=== PATIENT | male | born 1950 | race Caucasian/White ===

== ENCOUNTER 2018-10-05 11:56 | Observation (INO) ==
[2018-10-05] MEDS ORDERED: Aspirin 81 MG TAB.CHEW PO STA (12:00)
--- NOTE | 2018-10-05 12:12 | Emergency Department Note ---
Disposition Clinical Impression: Chest pain Qualifiers: Chest pain type: unspecified Qualified Code(s): R07.9 - Chest pain, unspecified Disposition: Admitted As Inpatient Condition: Good Forms: ED Satisfaction Letter Time of Disposition: 13:43 Chest Pain HPI - General Chief Complaint: ED Chest Pain Stated Complaint: cp Time Seen by Provider: 10/05/18 12:12 Source: patient, EMS Limitations: no limitations Vital Signs Reviewed: Yes Nursing Notes Reviewed: Yes - History of Present Illness HPI Narrative: I have re-performed and reviewed the history documented by the medical student, and I confirm its accuracy except as noted below Severity scale (1-10): 3 - Related Data Home Medications Medication Instructions Recorded Confirmed Citalopram [CeleXA] 20 mg PO DAILY 06/11/16 06/11/16 Dapagliflozin Propanediol [Farxiga] 5 mg PO DAILY 06/11/16 06/11/16 Insulin LISPRO [Humalog] 0 unit SQ AD MDD per pump 06/11/16 06/11/16 Lisinopril/Hydrochlorothiazide 1 tab PO DAILY 06/11/16 06/11/16 [Zestoretic 20-25 mg Tablet] Multivits,Ca,Min/Iron/FA/Lycop 1 tab PO DAILY 06/11/16 06/11/16 [Centrum Men's Tablet] Previous Rx's Medication Instructions Recorded Ferrous Sulfate 325 mg PO DAILY #30 tablet 06/13/16 Pantoprazole Sodium [Protonix] 40 mg PO BID #60 tablet. 06/13/16 Sucralfate [Carafate] 1 gm PO QIDAC #30 tablet 06/13/16 Sulfamethoxazole/Trimeth DS 1 each PO BID #20 tablet 09/01/17 [Bactrim DS] Tramadol HCl [Ultram] 50 mg PO TID PRN #15 tab 09/01/17 Allergies Allergy/AdvReac Type Severity Reaction Status Date / Time No Known Allergies Allergy Verified 09/01/17 15:16 All systems ED: reviewed and negative except as stated. Constitutional: Reports: other (Diaphoresis). Denies: fever Cardiovascular: Reports: chest pain Respiratory: Reports: dyspnea Gastrointestinal: Denies: abdominal pain, nausea, vomiting, diarrhea Genitourinary: Denies: urgency, dysuria Integumentary: Denies: rash Neurological: Denies: headache, weakness, numbness, paresthesias Chest Pain PMH - Past Medical History Medical history: Reports: diabetes, hyperlipidemia, hypertension, other Surgical history: Reports: no surgical history Psychiatric history: Reports: anxiety, depression - Social History Smoking Status: Former smoker Alcohol use: Reports: none Drug use: Reports: none Physical Exam - General Limitations: no limitations General appearance: alert Course Course Narrative: Patient vitals are stable at this time. Currently reports no active chest pain at this time. Physical exam fairly benign. Patient is in no acute distress, heart regular rate and rhythm, lungs clear to auscultation, abdomen soft and nontender. Legs show no edema, no calf tenderness. Distal pulses intact. Patient does have a concerning story for ACS etiology. Heart score that seeming troponin is negative would be a 6. Patient has no previous MN or stent history. EKG shows sinus rhythm with no acute ST changes. We will proceed with basic blood work, troponin, chest x-ray. Patient received aspirin 325 mg in route. Discussed that even if his workup is negative, patient will likely stay for ACS rule out. He is happy and agreeable with this plan. Patient was and has been ordered in case patient develops any additional chest discomfort. 13:41 chest x-ray negative. Troponin negative. Patient continues to have no pain at this time. No heparin drip or nitroglycerin drip started at this time. Patient was accepted for admission at this time for returning troponins and ACS rule out. Chest X-Ray 10/05/18 12:00 IMPRESSION: No acute process. D/ / Osiel Cagle MD / Osiel Cagle MD Interpreting Provider: Osiel Cagle MD Vital Signs Temperature 98.5 F 10/05/18 12:03 Pulse Rate 94 10/05/18 12:03 Respiratory Rate 18 10/05/18 12:03 Blood Pressure 139/78 10/05/18 12:03 O2 Sat by Pulse Oximetry 94 10/05/18 12:03 Temperature 98.5 F 10/05/18 12:03 Pulse Rate 94 10/05/18 12:59 Respiratory Rate 16 10/05/18 12:59 Blood Pressure 124/68 10/05/18 12:59 O2 Sat by Pulse Oximetry 96 10/05/18 12:59 Oxygen Delivery Oxygen Delivery Nasal Cannula Chest Pain - MDM Narrative Medical decision making narrative: Patient vitals are stable at this time. Currently reports no active chest pain at this time. Physical exam fairly benign. Patient is in no acute distress, heart regular rate and rhythm, lungs clear to auscultation, abdomen soft and nontender. Legs show no edema, no calf tenderness. Distal pulses intact. Patient does have a concerning story for ACS etiology. Heart score that seeming troponin is negative would be a 6. Patient has no previous MN or stent history. EKG shows sinus rhythm with no acute ST changes. We will proceed with basic blood work, troponin, chest x-ray. Patient received aspirin 325 mg in route. Discussed that even if his workup is negative, patient will likely stay for ACS rule out. He is happy and agreeable with this plan. Patient was and has been ordered in case patient develops any additional chest discomfort. 13:41 chest x-ray negative. Troponin negative. Patient continues to have no pain at this time. No heparin drip or nitroglycerin drip started at this time. Patient was accepted for admission at this time for returning troponins and ACS rule out. - Medical Records Medical records reviewed: Yes I reviewed the patient's medical records. - Lab Data Lab results reviewed: Yes I reviewed the patient's lab results. Result diagrams: 10/05/18 12:38 10/05/18 12:38 Lab Results 10/05/18 10/05/18 Range/Units 12:38 12:38 WBC 9.0 (4.3-11.1) K/mcL RBC 5.28 (4.19-5.50) M/mcL Hgb 15.5 (12.9-16.9) g/dL Hct 45.1 (37.5-50.1) % MCV 85.4 (83.0-100.0) fL MCH 29.4 (28.0-33.3) pg MCHC 34.4 (31.6-35.5) g/dL RDW 12.5 (11.5-14.5) % Plt Count 188 (140-400) K/mcL MPV 9.8 (9.4-12.4) fL Immature Gran % 0.7 (0-4) % Seg Neutrophils % 68.9 % Lymphocytes % 17.4 % Monocytes % 9.8 % Eosinophils % 2.5 % Basophils % 0.7 % Neutrophils # 6.2 (1.6-8.9) K/mcL Lymphocytes # 1.6 (0.6-4.6) K/mcL Monocytes # 0.9 (0.0-1.3) K/mcL Eosinophils # 0.2 (0.0-0.6) K/mcL Basophils # 0.1 (0.0-0.2) K/mcL Sodium 137 (136-145) mEq/L Potassium 4.1 (3.5-5.1) mEq/L Chloride 101 (98-107) mEq/L Carbon Dioxide 26 (23-29) mEq/L BUN 25 H (8-23) mg/dL Creatinine 0.91 (0.70-1.30) mg/dL Est GFR ( Amer) > 60 (> 60) Est GFR (Non-Af Amer) > 60 (> 60) BUN/Creatinine Ratio 27 H (6-26) Glucose 197 H (70-105) mg/dL Calculated Osmolality 294 (280-300) Calcium 10.0 (8.6-10.3) mg/dL Troponin I 0.03 (< 0.04) ng/mL - Radiology Data Radiology results reviewed: Yes I reviewed the patient's radiology results. Chest X-Ray 10/05/18 12:00 IMPRESSION: No acute process. D/ / Osiel Cagle MD / Osiel Cagle MD Interpreting Provider: Osiel Cagle MD - EKG Data EKG attestation: Yes I reviewed and interpreted this EKG. EKG results narrative: 10/05/2018 at 12:14. Sinus rhythm. Rate 94. AL 188. QRS 89. QTC 447. Left axis deviation. No acute ST elevation or depression. Heart Score - Score History: Moderately Suspicious EKG: Non Specific repolarisation Disturbance Age: Greater than 65 Risk Factors: Equal/Greater than 3 risk factor or history of atherosclerotic disease Troponin: Less than normal limit HEART Score Total: 6 S.B.A.R. - S.B.A.R. Situation: Demographics, MOA Background: Presenting Complaint, Relevant PMH, Meds, & Allergies Assessment: Vital Signs, Course and respsone to treatment, Exam Concerns, P atient/Family Expectation, Pertinant Lab Results Recommendation: Barrier(s) to disposition, Recommendation based on pending studies, treatments, or consults S.B.A.R. Report Given to: Dr. Bee
[2018-10-05] MEDS ORDERED: Nitroglycerin 0.4 MG TAB.SUBL SL PRN (12:18)
--- NOTE | 2018-10-05 12:27 | Emergency Department Note ---
Disposition Clinical Impression: Chest pain Qualifiers: Chest pain type: unspecified Qualified Code(s): R07.9 - Chest pain, unspecified Disposition: Admitted As Inpatient Condition: Good Chest Pain HPI - General Chief Complaint: ED Chest Pain Stated Complaint: chest pain Time Seen by Provider: 10/05/18 12:10 Source: patient, EMS Limitations: no limitations - History of Present Illness HPI Narrative: 68 YO M with a PMH significant for IDDM, HTN, dyslipidemia and peptic ulcer disease who presents to [facility] ED with approximately 1 hour of chest pain. History comes from the patient. Abilio states that he was cleaning his bedroom at [place] roximately 1115 this morning when he developed sudden onset of left sided chest pressure. He describes this feeling as radiating to his left arm, nonpositional and not reproducible with palpation. He developed sudden sweats with this chest pain and soaked the shirt he was wearing, but when he sat down on the couch he noted that his pain got better, though it did not entirely disappear. He then called EMS, who arrived, gave him 324 of aspirin and transported him to [place] ED for further evaluation and treatment. On arrival Abilio stated his pain was 2/10. He denies F/C, N/V/D, SOB, Vision changes, AMS, extremity swelling. He states his father suffered an MA, though he is unsure at what age. Pt complaint: chest pain Onset (ago): hour(s) Time: 15:00 Duration: other (Gradually improving) Pain Location: left chest Severity scale (1-10): 3 Quality: heaviness Pain Radiation: LUE Improves with: rest Worsens with: exertion Associated symptoms: Reports: diaphoresis. Denies: nausea, vomiting, dyspnea, syncope, palpitations, fever, leg swelling Treatments prior to arrival chest pain: aspirin - Related Data Home Medications Medication Instructions Recorded Confirmed RX: Citalopram [CeleXA] 20 mg PO DAILY 06/11/16 10/05/18 RX: Dapagliflozin Propanediol 5 mg PO DAILY 06/11/16 10/05/18 [Farxiga] RX: Lisinopril/Hydrochlorothiazide 1 tab PO BID 06/11/16 10/05/18 [Zestoretic 20-25 mg Tablet] RX: Multivits,Ca,Min/Iron/FA/Lycop 1 tab PO DAILY 06/11/16 10/05/18 [Centrum Men's Tablet] Insulin Regular U-500 [HumuLIN R 0 unit SQ AD 10/05/18 10/05/18 U-500] Potassium Chloride [K-Tab ER] 20 meq PO DAILY 10/05/18 10/05/18 Allergies Allergy/AdvReac Type Severity Reaction Status Date / Time No Known Allergies Allergy Verified 10/05/18 13:58 Constitutional: Denies: fever, chills Cardiovascular: Denies: chest pain, palpitations, edema, syncope Respiratory: Denies: cough, dyspnea, wheezes Gastrointestinal: Denies: abdominal pain, nausea, vomiting Genitourinary: Denies: urgency, dysuria, frequency Musculoskeletal: Denies: back pain, neck pain Neurological: Denies: headache, weakness Chest Pain PMH - Past Medical History Medical history: Reports: diabetes, hyperlipidemia, hypertension, other Surgical history: Reports: no surgical history Psychiatric history: Reports: anxiety, depression - Social History Smoking Status: Former smoker Alcohol use: Reports: none Drug use: Reports: none Physical Exam - General Limitations: no limitations General appearance: alert - Head Head exam: atraumatic, normocephalic, normal inspection - Eye Eye exam: Present: normal appearance, PERRL, EOMI - ENT ENT exam: normal exam, normal oropharynx, mucous membranes moist - Neck Neck exam: Present: normal inspection, full ROM, trachea midline - Chest Chest inspection: Present: normal inspection, symmetric chest wall rise. Absent: tenderness - Respiratory Respiratory exam: Present: normal lung sounds bilaterally. Absent: respiratory distress, wheezes, accessory muscle use - Cardiovascular Cardiovascular exam: Present: regular rate, normal rhythm, normal heart sounds. Absent: tachycardia, systolic murmur, rubs - Abdominal Exam Abdominal exam: Present: soft, Non-Tender, normal bowel sounds. Absent: tenderness, distention, guarding, rebound, rigidity - Extremities Exam Extremities exam: Present: normal inspection, full ROM, normal capillary refill. Absent: tenderness, pedal edema - Expanded Lower Extremity Exam Neurovascular/Tendon exam: Present: normal capillary refill. Absent: pulse deficit, motor deficit, sensory deficit - Neurological Exam Neurological exam: Present: alert, oriented X3, CN II-XII intact - Psychiatric Psychiatric exam: Present: normal affect, normal mood - Skin Skin exam: Present: warm, dry, intact Course Course Narrative: Abilio' history is highly concerning for a cardiac etiology. Assuming a normal troponin his heart score would still be a 7. He has had no stress test or echocardiogram in the past, and has been informed that regardless of laboratory results he will likely be admitted for observation, if not intervention. Abilio understands the plan of care and is amenable to the plan. - Reevaluation(s) Reevaluation #1: Initial troponin was WNL, however this was drawn early in the course of his c hest pain and could very well be a false negative. Repeat troponin evaluation is required, and the patient's worrisome history mandate inpatient observation regardless of laboratory result. This information was relayed to the patient and his family, who understood the plan of care and are amenable. On discussion with them it was made evident that his pain was improved with administration of nitroglycerin here in the ED. The hospitalist has been notified of Mr. Molina's condition. Vital Signs Temperature 98.5 F 10/05/18 12:03 Pulse Rate 94 10/05/18 12:03 Respiratory Rate 18 10/05/18 12:03 Blood Pressure 139/78 10/05/18 12:03 O2 Sat by Pulse Oximetry 94 10/05/18 12:03 Temperature 97.8 F 10/05/18 14:22 Pulse Rate 81 10/05/18 14:22 Respiratory Rate 16 10/05/18 14:22 Blood Pressure 126/79 10/05/18 14:22 O2 Sat by Pulse Oximetry 98 10/05/18 14:22 Oxygen Delivery Oxygen Delivery Room Air Chest Pain - Lab Data Result diagrams: 10/05/18 16:45 10/05/18 12:38 Lab Results 10/05/18 10/05/18 Range/Units 12:38 12:38 WBC 9.0 (4.3-11.1) K/mcL RBC 5.28 (4.19-5.50) M/mcL Hgb 15.5 (12.9-16.9) g/dL Hct 45.1 (37.5-50.1) % MCV 85.4 (83.0-100.0) fL MCH 29.4 (28.0-33.3) pg MCHC 34.4 (31.6-35.5) g/dL RDW 12.5 (11.5-14.5) % Plt Count 188 (140-400) K/mcL MPV 9.8 (9.4-12.4) fL Immature Gran % 0.7 (0-4) % Seg Neutrophils % 68.9 % Lymphocytes % 17.4 % Monocytes % 9.8 % Eosinophils % 2.5 % Basophils % 0.7 % Neutrophils # 6.2 (1.6-8.9) K/mcL Lymphocytes # 1.6 (0.6-4.6) K/mcL Monocytes # 0.9 (0.0-1.3) K/mcL Eosinophils # 0.2 (0.0-0.6) K/mcL Basophils # 0.1 (0.0-0.2) K/mcL Sodium 137 (136-145) mEq/L Potassium 4.1 (3.5-5.1) mEq/L Chloride 101 (98-107) mEq/L Carbon Dioxide 26 (23-29) mEq/L BUN 25 H (8-23) mg/dL Creatinine 0.91 (0.70-1.30) mg/dL Est GFR ( Amer) > 60 (> 60) Est GFR (Non-Af Amer) > 60 (> 60) BUN/Creatinine Ratio 27 H (6-26) Glucose 197 H (70-105) mg/dL Calculated Osmolality 294 (280-300) Calcium 10.0 (8.6-10.3) mg/dL Troponin I 0.03 (< 0.04) ng/mL - EKG Data EKG attestation: Yes I reviewed and interpreted this EKG. EKG shows normal: sinus rhythm Rate: normal Rhythm: NSR [place]/QRS: left axis deviation QRS morphology: J-point elevation (V2, V3) Interpretation: nonspecific ST-T wave changes Heart Score - Score History: Highly Suspicious EKG: Non Specific repolarisation Disturbance Age: Greater than 65 Risk Factors: Equal/Greater than 3 risk factor or history of atherosclerotic disease Troponin: Less than normal limit HEART Score Total: 7
[2018-10-05 13:14] LABS: Basophils # 0.1 K/mcL (0.0-0.2); Basophils % 0.7 %; Eosinophils # 0.2 K/mcL (0.0-0.6); Eosinophils % 2.5 %; Hematocrit 45.1 % (37.5-50.1); Hemoglobin 15.5 g/dL (12.9-16.9); Immature Granulocytes % 0.7 % (0-4); Lymphocytes # 1.6 K/mcL (0.6-4.6); Lymphocytes % 17.4 %; Mean Corpuscular HGB Conc 34.4 g/dL (31.6-35.5); Mean Corpuscular Hemoglobin 29.4 pg (28.0-33.3); Mean Corpuscular Volume 85.4 fL (83.0-100.0); Mean Platelet Volume 9.8 fL (9.4-12.4); Monocytes # 0.9 K/mcL (0.0-1.3); Monocytes % 9.8 %; Neutrophils # 6.2 K/mcL (1.6-8.9); Platelet Count 188 K/mcL (140-400); Red Blood Count 5.28 M/mcL (4.19-5.50); Red Cell Distribution Width 12.5 % (11.5-14.5); Segmented Neutrophils % 68.9 %; Troponin I 0.03 ng/mL (< 0.04)
[2018-10-05 13:17] LABS: BUN/Creatinine Ratio 27 (6-26); Blood Urea Nitrogen 25 mg/dL (8-23); Carbon Dioxide 26 mEq/L (23-29); Chloride 101 mEq/L (98-107); Glucose 197 mg/dL (70-105); Osmolality,Calculated 294 (280-300); Potassium 4.1 mEq/L (3.5-5.1); Sodium 137 mEq/L (136-145); eGFR For Non-African Americans > 60 (> 60)
--- NOTE | 2018-10-05 14:40 | Internal Med History&Physical ---
<Hellen Akhtar - Last Filed: 10/05/18 16:28> Date of Encounter: 10/05/18 Time of Encounter: 16:00 Internal Medicine - H&P: HPI History of present illness: Mr. Molina is a 68 year old male Past Med Surg Social Fam HX - Additional Family History Additional family history: Cardiac disease in his father. Internal Medicine - H&P: Meds Citalopram [CeleXA] 20 mg PO DAILY 06/11/16 [History] Dapagliflozin Propanediol [Farxiga] 5 mg PO DAILY 06/11/16 [History] Lisinopril/Hydrochlorothiazide [Zestoretic 20-25 mg Tablet] 1 tab PO BID 06/11/16 [History] Multivits,Ca,Min/Iron/FA/Lycop [Centrum Men's Tablet] 1 tab PO DAILY 06/11/16 [History] Insulin Regular U-500 [HumuLIN R U-500] 0 unit SQ AD 10/05/18 [History] Potassium Chloride [K-Tab ER] 20 meq PO DAILY 10/05/18 [History] Allergy/AdvReac Type Severity Reaction Status Date / Time No Known Allergies Allergy Verified 10/05/18 13:58 All Systems PM: A 10-system review of systems was performed and is negative for pertinent findings except as documented above in the HPI. - Constitutional Vitals: Temp Pulse Resp BP Pulse Ox 97.8 F 81 16 126/79 98 10/05/18 14:22 10/05/18 14:22 10/05/18 14:22 10/05/18 14:22 10/05/18 14:22 Internal Med - H&P Results - Labs CBC & Chem 7: 10/05/18 14:57 10/05/18 12:38 Labs: Short CBC 10/05/18 10/05/18 Range/Units 12:38 14:57 WBC 9.0 11.5 H (4.3-11.1) K/mcL Hgb 15.5 15.8 (12.9-16.9) g/dL Hct 45.1 46.2 (37.5-50.1) % Plt Count 188 199 (140-400) K/mcL Neutrophils # 6.2 8.0 (1.6-8.9) K/mcL BMP 10/05/18 12:38 Sodium 137 Potassium 4.1 Chloride 101 Carbon Dioxide 26 BUN 25 H Creatinine 0.91 Glucose 197 H Calcium 10.0 Cardiac Enzymes 10/05/18 10/05/18 Range/Units 12:38 14:57 Troponin I 0.03 0.07 H* (< 0.04) ng/mL - Impressions ITS Impressions Chest X-Ray 10/05/18 12:00 IMPRESSION: No acute process. D/ / Osiel Cagle MD / Osiel Cgale MD Interpreting Provider: Osiel Cagle MD - Assessment and plan (1) Hyperglycemia due to type 2 diabetes mellitus Current Visit: No Status: Acute (2) HTN (hypertension) Current Visit: No Status: Acute (3) Chest pain Current Visit: Yes Status: Acute Qualifiers: Chest pain type: unspecified Qualified Code(s): R07.9 - Chest pain, unsp ecified (4) Insulin dependent diabetes mellitus Current Visit: Yes Status: Acute (5) DVT prophylaxis Current Visit: Yes Status: Acute - Time Spent With Patient Total time spent is greater than 50% in coordination of care (as documented) at patient's floor/unit and/or counseling patient: - Attending Attestation I saw evaluated and examined this patient and my medical decision-making was reviewed with the Resident Physician, Aleksandr Gonzalez. I agree with the documented findings, disposition and treatment plan as described except to any changes set forth below. We independently had [id number] contact with the patient. Patient with history of diabetes, hypertension, hyperlipidemia who presented to the ER with complaints of chest pain that began at around 11:30 AM this morning. He reports that the pain as left-sided in location and radiating down his left arm. He called EMS and received nitroglycerin and aspirin when they arrived which did decrease his pain. He is presently chest pain-free. He is never had similar kind of chest pain before. No recent stress test. He denies any pedal edema or shortness of breath. No nausea or vomiting or diarrhea. General: Patient is alert, no acute distress, oriented x 3 Head: atraumatic, normocephalic, ENT: Mucous membranes moist Eye: normal appearance, PERRL, no scleral icterus, no conjunctival injection Neck: normal inspection, trachea midline, full ROM, no carotid bruits Chest: normal inspection, symmetric chest rise Respiratory: Good respiratory effort. Normal breath sounds. No wheezing or crackles. Cardiovascular: Regular rate and rhythm. s1 and s2 normal No clicks, rubs, gallops, or murmurs. No pedal edema Abdomen: Abdomen is soft, nontender. Bowel sounds are present Musculoskeletal: Spontaneously moving all extremities Skin: warm, dry, intact. Neuro: Alert oriented x 3 normal cranial nerves, no focal deficits Psych: Patient's affect is normal EKG shows normal sinus rhythm. Left axis deviation. Acute chest pain: Precordial chest pain. With mild elevation in troponins. We will consult cardiology. Follow the recommendations regarding treatment plan. For now continue to trend troponins. Keep patient nothing by mouth for either stress test or left heart catheterization tomorrow. Check lipid profile. High risk for ACS Diabetes mellitus type 2: Monitor blood sugars. Sliding scale insulin. Check A1c. Essential hypertension: Monitor blood pressure. Resume home medications. <Aleksandr Gonzalez - Last Filed: 10/05/18 17:14> Date of Encounter: 10/05/18 Time of Encounter: 14:39 Internal Medicine - H&P: HPI Chief complaint: Chest pain Admitted From: Home Plans for Post Hospital Care: Home History of present illness: Mr. Molina is a 68 year old male with pmhx of DM type II on insulin pump, HTN, HLD, sleep apnea not using CPAP, obesity presented to the emergency department with left sided substernal crushing chest pain raidiating to his left arm, exacerbated with activity and improved with rest and nitroglycerin he received in the emergency department. The chest pain started around 11am while he was exerting himself and did not improve until roughly 1:30 when he was brought to the ER by EMS. On the way he was given 324mg PO ASA and received nitro in the emergency department. With his chest pain he had dipahoresis and palpitations but no nausea or vomiting. He denies any other symptoms. He denies ever having similar symptoms like this in the past. An EKG was performed that demonstrated NSR with left axis and a mild one small box elevation in a single lead (V2). No other elevations or depressions. Initial lab work was without significants and initial troponin was negative. Mr. Molina says he was chest pain free during our discussion. Past Med Surg Social Fam HX - Past Medical History Medical history: diabetes, hyperlipidemia, hypertension, other Additional medical history: ULCER Psychiatric history: anxiety, depression - Past Surgical History Surgical History: no surgical history Additional surgical history: Carpal tunnel. Achilles Tendon. APPY. - Social History Smoking Status: Former smoker Smokeless Tobacco Status: No Alcohol use: none Drug use: none - Family History Father Hx Family Cardiac Disorders: Yes Mother Hx Family Endocrine Disorder: Yes (DM) All Systems PM: A 10-system review of systems was performed and is negative for pertinent findings except as documented above in the HPI. - Constitutional Constitutional: excessive sweating, no chills, no fatigue, no fever(s), no falls, no malaise, no night sweats, no weakness - EENT Eyes: no change in vision Nose, mouth and throat: no dental pain, no facial pain - Cardiovascular Cardiovascular ROS IM: chest pain, diaphoresis, dyspnea, dyspnea on exertion, palpitations, no edema, no irregular heart rhythm, no lightheadedness - Respiratory Respiratory: dyspnea, no cough - Gastrointestinal Gastrointestinal: no constipation, no diarrhea, no melena, no nausea, no vomiting - Constitutional Vitals: Temp Pulse Resp BP Pulse Ox 97.8 F 81 16 126/79 98 10/05/18 14:22 10/05/18 14:22 10/05/18 14:22 10/05/18 14:22 10/05/18 14:22 General appearance: Present: A&O X 3 Exam: Gen: Alert, oriented, interactive, no acute distress HEENT: NC/AT, PERRLA, speech appropriate, neck supple Cardiac: RRR, +S1,S2, no murmurs or gallops appreciated, radial pulses 2+ bilateral Resp: CTABL Abdomen: soft, nontender, +BS Extremities: symmetric, spontaneously moving all 4 limbs Internal Med - H&P Results - Labs CBC & Chem 7: 10/05/18 14:57 10/05/18 12:38 Labs: Short CBC 10/05/18 Range/Units 12:38 WBC 9.0 (4.3-11.1) K/mcL Hgb 15.5 (12.9-16.9) g/dL Hct 45.1 (37.5-50.1) % Plt Count 188 (140-400) K/mcL Neutrophils # 6.2 (1.6-8.9) K/mcL BMP 10/05/18 12:38 Sodium 137 Potassium 4.1 Chloride 101 Carbon Dioxide 26 BUN 25 H Creatinine 0.91 Glucose 197 H Calcium 10.0 Cardiac Enzymes 10/05/18 Range/Units 12:38 Troponin I 0.03 (< 0.04) ng/mL - Impressions ITS Impressions Chest X-Ray 10/05/18 12:00 IMPRESSION: No acute process. D/ / Osiel Cagle MD / Osiel Cagle MD Interpreting Provider: Osiel Cagle MD - Assessment and plan (1) Chest pain Current Visit: Yes Status: Acute Assessment and plan: Typical chest pain - EKG Normal sinus rhythm with left axis deviation - Troponin 0.03 now 0.07, one more pending - Elevated triglycerides - Cardiac monitoring - Start statin, ASA, Heparin Drip - Consult placed to cardiology and spoke with Dr. Peraza - Echocardiogram Qualifiers: Chest pain type: unspecified Qualified Code(s): R07.9 - Chest pain, unspecified (2) Insulin dependent diabetes mellitus Current Visit: Yes Status: Acute Assessment and plan: Continue patients insulin pump - ACHS glucose checks - HgbA1C (3) HTN (hypertension) Current Visit: No Status: Acute Assessment and plan: - continue to BP meds - Qshift monitoring Qualifiers: (4) DVT prophylaxis Current Visit: Yes Status: Acute Assessment and plan: Heparin Drip. - Time Spent With Patient Total time spent is greater than 50% in coordination of care (as documented) at patient's floor/unit and/or counseling patient:
[2018-10-05] MEDS ORDERED: Naloxone 0.4 MG/ML INJ IVP PRN (14:41)
[2018-10-05 15:21] LABS: Basophils # 0.1 K/mcL (0.0-0.2); Basophils % 0.5 %; Eosinophils # 0.3 K/mcL (0.0-0.6); Eosinophils % 2.2 %; Hematocrit 46.2 % (37.5-50.1); Hemoglobin 15.8 g/dL (12.9-16.9); Immature Granulocytes % 0.6 % (0-4); Lymphocytes # 2.1 K/mcL (0.6-4.6); Lymphocytes % 18.1 %; Mean Corpuscular HGB Conc 34.2 g/dL (31.6-35.5); Mean Corpuscular Hemoglobin 29.2 pg (28.0-33.3); Mean Corpuscular Volume 85.4 fL (83.0-100.0); Mean Platelet Volume 9.7 fL (9.4-12.4); Monocytes % 8.9 %; Platelet Count 199 K/mcL (140-400); Red Blood Count 5.41 M/mcL (4.19-5.50); Red Cell Distribution Width 12.6 % (11.5-14.5); Segmented Neutrophils % 69.7 %
--- NOTE | 2018-10-05 15:40 | Internal Med History&Physical ---
Date of Encounter: 10/05/18 Time of Encounter: 15:18 Internal Medicine - H&P: HPI Chief complaint: Chest pain Admitted From: Home Plans for Post Hospital Care: Home History of present illness: Mr. Molina is a 68 year old male with a past medical history significant for HTN, hyperlipidemia Past Med Surg Social Fam HX - Past Medical History Medical history: diabetes, hyperlipidemia, hypertension, other Additional medical history: ULCER Psychiatric history: anxiety, depression - Past Surgical History Surgical History: no surgical history Additional surgical history: Carpal tunnel. Achilles Tendon - Social History Smoking Status: Former smoker Smokeless Tobacco Status: No Alcohol use: none Drug use: none - Family History Father Hx Family Cardiac Disorders: Yes Mother Hx Family Endocrine Disorder: Yes (DM) Internal Medicine - H&P: Meds Citalopram [CeleXA] 20 mg PO DAILY 06/11/16 [History] Dapagliflozin Propanediol [Farxiga] 5 mg PO DAILY 06/11/16 [History] Lisinopril/Hydrochlorothiazide [Zestoretic 20-25 mg Tablet] 1 tab PO BID 06/11/16 [History] Multivits,Ca,Min/Iron/FA/Lycop [Centrum Men's Tablet] 1 tab PO DAILY 06/11/16 [History] Insulin Regular U-500 [HumuLIN R U-500] 0 unit SQ AD 10/05/18 [History] Potassium Chloride [K-Tab ER] 20 meq PO DAILY 10/05/18 [History] Allergy/AdvReac Type Severity Reaction Status Date / Time No Known Allergies Allergy Verified 10/05/18 13:58 All Systems PM: A 10-system review of systems was performed and is negative for pertinent findings except as documented above in the HPI. - Constitutional Vitals: Temp Pulse Resp BP Pulse Ox 97.8 F 81 16 126/79 98 10/05/18 14:22 10/05/18 14:22 10/05/18 14:22 10/05/18 14:22 10/05/18 14:22 Internal Med - H&P Results - Labs CBC & Chem 7: 10/05/18 14:57 10/05/18 12:38 Labs: Short CBC 10/05/18 Range/Units 12:38 WBC 9.0 (4.3-11.1) K/mcL Hgb 15.5 (12.9-16.9) g/dL Hct 45.1 (37.5-50.1) % Plt Count 188 (140-400) K/mcL Neutrophils # 6.2 (1.6-8.9) K/mcL BMP 10/05/18 12:38 Sodium 137 Potassium 4.1 Chloride 101 Carbon Dioxide 26 BUN 25 H Creatinine 0.91 Glucose 197 H Calcium 10.0 Cardiac Enzymes 10/05/18 Range/Units 12:38 Troponin I 0.03 (< 0.04) ng/mL - Impressions ITS Impressions Chest X-Ray 10/05/18 12:00 IMPRESSION: No acute process. D/ / Osiel Cagle MD / Osiel Cagle MD Interpreting Provider: Osiel Cagle MD - Time Spent With Patient Total time spent is greater than 50% in coordination of care (as documented) at patient's floor/unit and/or counseling patient:
[2018-10-05 15:42] LABS: Cholesterol 167 mg/dL (< 200); HDL Cholesterol 24 mg/dL (40-59); Triglycerides 692 mg/dL (< 150)
[2018-10-05] MEDS ORDERED: Heparin 25,000 UNIT/500 ML D5W 25,000 UNIT/500 ML BAG IVC SCH (16:30)
[2018-10-05] MEDS ORDERED: *HR* Heparin 5,000 UNIT/ML VIAL IVP PRN (16:30)
[2018-10-05] MEDS ORDERED: *HR* Heparin 5,000 UNIT/ML VIAL IVP ONE (16:30)
[2018-10-05] MEDS ORDERED: D5% in Water 1,000 ML IVC PRN (16:36)
[2018-10-05] MEDS ORDERED: *HR* Dextrose 50 % in Water (Syg) 50 ML SYRINGE IVP PRN (16:36)
[2018-10-05] MEDS ORDERED: Dextrose Gel 15 GM/37.5 ML TUBE PO PRN ×2 (16:36)
[2018-10-05] MEDS ORDERED: INSULIN REGULAR SQ SCH (16:45)
--- NOTE | 2018-10-05 16:58 | Emergency Department Note ---
Disposition Clinical Impression: Chest pain Qualifiers: Chest pain type: unspecified Qualified Code(s): R07.9 - Chest pain, unspecified Disposition: Admitted As Inpatient Condition: Good General Adult HPI - General Chief complaint: ED Chest Pain Stated complaint: cp Time Seen by Provider: 10/05/18 12:10 Source: patient, EMS Limitations: no limitations - History of Present Illness Pain Scale: 0 - Related Data Home Medications Medication Instructions Recorded Confirmed Citalopram [CeleXA] 20 mg PO DAILY 06/11/16 10/05/18 Dapagliflozin Propanediol [Farxiga] 5 mg PO DAILY 06/11/16 10/05/18 Lisinopril/Hydrochlorothiazide 1 tab PO BID 06/11/16 10/05/18 [Zestoretic 20-25 mg Tablet] Multivits,Ca,Min/Iron/FA/Lycop 1 tab PO DAILY 06/11/16 10/05/18 [Centrum Men's Tablet] Insulin Regular U-500 [HumuLIN R 0 unit SQ AD 10/05/18 10/05/18 U-500] Potassium Chloride [K-Tab ER] 20 meq PO DAILY 10/05/18 10/05/18 Allergies Allergy/AdvReac Type Severity Reaction Status Date / Time No Known Allergies Allergy Verified 10/05/18 13:58 Constitutional: Denies: fever, chills Cardiovascular: Denies: chest pain, palpitations, edema, syncope Respiratory: Denies: cough, dyspnea, wheezes Gastrointestinal: Denies: abdominal pain, nausea, vomiting Genitourinary: Denies: urgency, dysuria, frequency Musculoskeletal: Denies: back pain, neck pain Integumentary: Denies: rash Neurological: Denies: headache, weakness Past Medical History - Past Medical History Medical history: Reports: diabetes, hyperlipidemia, hypertension, other Surgical history: Reports: no surgical history Psychiatric history: Reports: anxiety, depression - Social History Smoking Status: Former smoker Smokeless Tobacco Status: No Alcohol use: Reports: none Drug use: Reports: none Physical Exam - General Limitations: no limitations General appearance: alert Course Vital Signs Temperature 98.5 F 10/05/18 12:03 Pulse Rate 94 10/05/18 12:03 Respiratory Rate 18 10/05/18 12:03 Blood Pressure 139/78 10/05/18 12:03 O2 Sat by Pulse Oximetry 94 10/05/18 12:03 Temperature 97.8 F 10/05/18 14:22 Pulse Rate 81 10/05/18 14:22 Respiratory Rate 16 10/05/18 14:22 Blood Pressure 126/79 10/05/18 14:22 O2 Sat by Pulse Oximetry 98 10/05/18 14:22 Oxygen Delivery Oxygen Delivery Room Air Medical Decision Making - Lab Data Result diagrams: 10/05/18 14:57 10/05/18 12:38 Lab Results 10/05/18 10/05/18 Range/Units 12:38 12:38 WBC 9.0 (4.3-11.1) K/mcL RBC 5.28 (4.19-5.50) M/mcL Hgb 15.5 (12.9-16.9) g/dL Hct 45.1 (37.5-50.1) % MCV 85.4 (83.0-100.0) fL MCH 29.4 (28.0-33.3) pg MCHC 34.4 (31.6-35.5) g/dL RDW 12.5 (11.5-14.5) % Plt Count 188 (140-400) K/mcL MPV 9.8 (9.4-12.4) fL Immature Gran % 0.7 (0-4) % Seg Neutrophils % 68.9 % Lymphocytes % 17.4 % Monocytes % 9.8 % Eosinophils % 2.5 % Basophils % 0.7 % Neutrophils # 6.2 (1.6-8.9) K/mcL Lymphocytes # 1.6 (0.6-4.6) K/mcL Monocytes # 0.9 (0.0-1.3) K/mcL Eosinophils # 0.2 (0.0-0.6) K/mcL Basophils # 0.1 (0.0-0.2) K/mcL Sodium 137 (136-145) mEq/L Potassium 4.1 (3.5-5.1) mEq/L Chloride 101 (98-107) mEq/L Carbon Dioxide 26 (23-29) mEq/L BUN 25 H (8-23) mg/dL Creatinine 0.91 (0.70-1.30) mg/dL Est GFR ( Amer) > 60 (> 60) Est GFR (Non-Af Amer) > 60 (> 60) BUN/Creatinine Ratio 27 H (6-26) Glucose 197 H (70-105) mg/dL Calculated Osmolality 294 (280-300) Calcium 10.0 (8.6-10.3) mg/dL Troponin I 0.03 (< 0.04) ng/mL Attestation Statement - Attestation Attestation: I examined this patient and my medical decision-making was reviewed with the Resident Physician. I agree with the documented findings, disposition and treatment plan as described except to the extent set forth below. High-risk HD normal CP pt, now pain-free after NTG, non-ischemic EKG and negative first troponin. Accepted for admission.
[2018-10-05 17:15] LABS: Hematocrit 46.1 % (37.5-50.1); Hemoglobin 15.8 g/dL (12.9-16.9); Mean Corpuscular HGB Conc 34.3 g/dL (31.6-35.5); Mean Corpuscular Hemoglobin 29.2 pg (28.0-33.3); Mean Corpuscular Volume 85.2 fL (83.0-100.0); Mean Platelet Volume 9.9 fL (9.4-12.4); Platelet Count 205 K/mcL (140-400); Red Blood Count 5.41 M/mcL (4.19-5.50); Red Cell Distribution Width 12.7 % (11.5-14.5)
[2018-10-05 17:23] LABS: Heparin anti-factor XA UFH 0.06 IU/mL (0.30-0.70); Prothrombin Time 11.5 Seconds (9.4-12.1)
[2018-10-05 17:41] LABS: Estimated Average Glucose 186 mg/dl; Hemoglobin A1C 8.1 %
[2018-10-05] MEDS: Patient Taking Own Medication 1 EACH SQ SCH (19:37)
[2018-10-06 00:39] LABS: Basophils # 0.1 K/mcL (0.0-0.2); Basophils % 0.9 %; Eosinophils # 0.4 K/mcL (0.0-0.6); Eosinophils % 4.2 %; Hemoglobin 15.3 g/dL (12.9-16.9); Immature Granulocytes % 0.5 % (0-4); Lymphocytes # 3.3 K/mcL (0.6-4.6); Lymphocytes % 35.6 %; Mean Corpuscular Hemoglobin 29.5 pg (28.0-33.3); Mean Corpuscular Volume 86.7 fL (83.0-100.0); Mean Platelet Volume 9.8 fL (9.4-12.4); Monocytes # 0.9 K/mcL (0.0-1.3); Monocytes % 9.3 %; Neutrophils # 4.6 K/mcL (1.6-8.9); Platelet Count 178 K/mcL (140-400); Red Blood Count 5.19 M/mcL (4.19-5.50); Red Cell Distribution Width 12.8 % (11.5-14.5); Segmented Neutrophils % 49.5 %
[2018-10-06] MEDS: *HR* Heparin 5,000 UNIT/ML VIAL IVP PRN ×2 (00:55→07:17)
[2018-10-06 03:45] LABS: Basophils # 0.1 K/mcL (0.0-0.2); Basophils % 0.8 %; Eosinophils # 0.4 K/mcL (0.0-0.6); Eosinophils % 4.6 %; Immature Granulocytes % 0.8 % (0-4); Immature Platelets 2.9 % (1.1-6.1); Lymphocytes # 3.2 K/mcL (0.6-4.6); Lymphocytes % 35.5 %; Mean Corpuscular HGB Conc 34.9 g/dL (31.6-35.5); Mean Corpuscular Hemoglobin 29.8 pg (28.0-33.3); Mean Corpuscular Volume 85.3 fL (83.0-100.0); Mean Platelet Volume 9.6 fL (9.4-12.4); Monocytes # 0.8 K/mcL (0.0-1.3); Monocytes % 8.9 %; Neutrophils # 4.4 K/mcL (1.6-8.9); Platelet Count 188 K/mcL (140-400); Red Blood Count 5.04 M/mcL (4.19-5.50); Red Cell Distribution Width 12.9 % (11.5-14.5); Segmented Neutrophils % 49.4 %
[2018-10-06 03:51] LABS: INR 1.1; Prothrombin Time 11.9 Seconds (9.4-12.1)
[2018-10-06 04:00] LABS: Alanine Aminotransferase 24 Units/L (7-52); Albumin 4.1 g/dL (3.5-5.7); Albumin/Globulin Ratio 1.4 (1.1-2.2); Alkaline Phosphatase 69 Units/L (34-104); Aspartate Amino Transferase 21 Units/L (13-39); BUN/Creatinine Ratio 22 (6-26); Bilirubin,Total 0.8 mg/dL (0.3-1.0); Blood Urea Nitrogen 19 mg/dL (8-23); Calcium 9.4 mg/dL (8.6-10.3); Carbon Dioxide 28 mEq/L (23-29); Chloride 100 mEq/L (98-107); Globulin 2.9 g/dL (2.4-3.5); Glucose 105 mg/dL (70-105); Magnesium 2.1 mg/dL (1.6-2.6); Osmolality,Calculated 287 (280-300); Potassium 3.6 mEq/L (3.5-5.1); Sodium 137 mEq/L (136-145); eGFR For Non-African Americans > 60 (> 60)
--- NOTE | 2018-10-06 08:12 | Internal Med Progress Note ---
<Aleksandr Gonzalez - Last Filed: 10/06/18 13:47> Hospitalist Progress Note - Encounter Date of Encounter: 10/06/18 Time of Encounter: 08:00 - Subjective Interval History: Mr. Molina is been seen and evaluated patient bedside this morning. He denies any chest pain overnight he slept well no concerns. Denies any diaphoresis, change in vision, chest discomfort, shortness of breath, palpitations, abdominal pain, nausea vomiting diarrhea constipation or any other concerning symptoms. He understands the plan he is awaiting further evaluation and cardiology's morning. Potential nuclear medicine stress test versus [facility] dependent on cardiology review. - Exam Vitals: Temp Pulse Resp BP Pulse Ox 97.6 F 67 16 139/80 97 10/06/18 03:52 10/06/18 03:52 10/06/18 03:52 10/06/18 03:52 10/06/18 03:52 Exam: Gen: Alert, oriented, interactive, no acute distress HEENT: NC/AT, PERRLA, speech appropriate, neck supple Cardiac: RRR, +S1,S2, no murmurs or gallops appreciated, radial pulses 2+ bilateral Resp: CTABL Abdomen: soft, nontender, +BS Extremities: symmetric, spontaneously moving all 4 limbs - Assessment and Plan (1) Chest pain Current Visit: Yes Status: Acute Assessment and Plan: Typical chest pain - EKG Normal sinus rhythm with left axis deviation (10/05) - Troponin trending down from high of 0.09 - Continue heparin drip, waiting further recommendations from cardiology today. (2) Insulin dependent diabetes mellitus Current Visit: Yes Status: Acute Assessment and Plan: Continue patients insulin pump - ACHS glucose checks - HgbA1C 8.1 - sliding scall initiate after patient ran out of insulin for his pump. (3) HTN (hypertension) Current Visit: No Status: Acute Assessment and Plan: - Continue lisinopril - Qshift monitoring (4) DVT prophylaxis Current Visit: Yes Status: Acute Assessment and Plan: Heparin Drip. - Time Spent with Patient Total time spent is greater than 50% in coordination of care (as documented) at patient's floor/unit and/or counseling patient: Internal Medicine: Result - Labs CBC & Chem 7: 10/06/18 11:49 10/06/18 02:58 Labs: Short CBC 10/05/18 10/05/18 10/05/18 Range/Units 12:38 14:57 16:45 WBC 9.0 11.5 H 11.2 H (4.3-11.1) K/mcL Hgb 15.5 15.8 15.8 (12.9-16.9) g/dL Hct 45.1 46.2 46.1 (37.5-50.1) % Plt Count 188 199 205 (140-400) K/mcL Neutrophils # 6.2 8.0 (1.6-8.9) K/mcL 10/06/18 10/06/18 Range/Units 00:13 02:58 WBC 9.3 8.9 (4.3-11.1) K/mcL Hgb 15.3 15.0 (12.9-16.9) g/dL Hct 45.0 43.0 (37.5-50.1) % Plt Count 178 188 (140-400) K/mcL Neutrophils # 4.6 4.4 (1.6-8.9) K/mcL BMP 10/05/18 10/06/18 12:38 02:58 Sodium 137 137 Potassium 4.1 3.6 Chloride 101 100 Carbon Dioxide 26 28 BUN 25 H 19 Creatinine 0.91 0.85 Glucose 197 H 105 Calcium 10.0 9.4 Cardiac Enzymes 10/05/18 10/05/18 10/05/18 Range/Units 12:38 14:57 20:52 Troponin I 0.03 0.07 H* 0.09 H* (< 0.04) ng/mL 10/06/18 Range/Units 02:58 Troponin I 0.07 H* (< 0.04) ng/mL Liver Function 10/06/18 Range/Units 02:58 Total Bilirubin 0.8 (0.3-1.0) mg/dL AST 21 (13-39) Units/L ALT 24 (7-52) Units/L Alkaline Phosphatase 69 (34-104) Units/L Albumin 4.1 (3.5-5.7) g/dL - ABG Interpretation ABG results: PT/INR, D-dimer PT 11.9 Seconds (9.4-12.1) 10/06/18 02:58 - Impressions Impressions Chest X-Ray 10/05/18 12:00 IMPRESSION: No acute process. D/ / Osiel Cagle MD / Osiel Cagle MD Interpreting Provider: Osiel Cagle MD Consult Discharge Plan - Plan Referrals: Omar Landis MD [Partnered Physician] - 10/14/18 9:30 am Chilo Sal MD [Primary Care Provider] - 03/29/19 2:00 pm () Osiel Melissa CNP [Advanced Practice Nurse] - 10/11/18 3:00 pm Sandra Mallory CNP [Advanced Practice Nurse] - 10/12/18 10:35 am <Hellen Akhtar - Last Filed: 10/06/18 16:50> Hospitalist Progress Note - Encounter Date of Encounter: 10/06/18 Time of Encounter: 08:10 - Exam Vitals: Temp Pulse Resp BP Pulse Ox 97.9 F 68 18 124/71 93 10/06/18 15:33 10/06/18 15:33 10/06/18 15:33 10/06/18 15:33 10/06/18 15:33 - Assessment and Plan (1) HTN (hypertension) Current Visit: No Status: Acute (2) Chest pain Current Visit: Yes Status: Acute (3) Insulin dependent diabetes mellitus Current Visit: Yes Status: Acute (4) DVT prophylaxis Current Visit: Yes Status: Acute - Time Spent with Patient Total time spent is greater than 50% in coordination of care (as documented) at patient's floor/unit and/or counseling patient: Internal Medicine: Result - Labs CBC & Chem 7: 10/06/18 11:49 10/06/18 02:58 Labs: Short CBC 10/05/18 10/06/18 10/06/18 Range/Units 16:45 00:13 02:58 WBC 11.2 H 9.3 8.9 (4.3-11.1) K/mcL Hgb 15.8 15.3 15.0 (12.9-16.9) g/dL Hct 46.1 45.0 43.0 (37.5-50.1) % Plt Count 205 178 188 (140-400) K/mcL Neutrophils # 4.6 4.4 (1.6-8.9) K/mcL 10/06/18 Range/Units 11:49 WBC 8.1 (4.3-11.1) K/mcL Hgb 15.1 (12.9-16.9) g/dL Hct 43.3 (37.5-50.1) % Plt Count 175 (140-400) K/mcL Neutrophils # (1.6-8.9) K/mcL BMP 10/06/18 02:58 Sodium 137 Potassium 3.6 Chloride 100 Carbon Dioxide 28 BUN 19 Creatinine 0.85 Glucose 105 Calcium 9.4 Cardiac Enzymes 10/05/18 10/06/18 Range/Units 20:52 02:58 Troponin I 0.09 H* 0.07 H* (< 0.04) ng/mL Liver Function 10/06/18 Range/Units 02:58 Total Bilirubin 0.8 (0.3-1.0) mg/dL AST 21 (13-39) Units/L ALT 24 (7-52) Units/L Alkaline Phosphatase 69 (34-104) Units/L Albumin 4.1 (3.5-5.7) g/dL - ABG Interpretation ABG results: PT/INR, D-dimer PT 11.4 Seconds (9.4-12.1) 10/06/18 11:49 - Impressions Impressions Echocardiogram 10/06/18 08:42 Impressions: LVEF 60%. Normal LV chamber size and function. Mild concentric left ventricular hypertrophy. Mild left ventricular diastolic dysfunction. Normal right ventricular structure and function. Unable to estimate RVSP due to lack of TR jet. No significant valvular dysfunction. Left Ventricular Wall Motion: Rest Echo Findings All wall segments showed normal motion. Findings: Study Quality * Technically adequate exam. ECG Findings * Normal sinus rhythm. Left Ventricle * LVEF 60%. * Normal LV chamber size and function. * Mild concentric left ventricular hypertrophy. * Mild left ventricular diastolic dysfunction. Right Ventricle * Normal right ventricular structure and function. Left Atrium * Normal left atrial size. Right Atrium * Normal right atrial size. Aortic Valve * Trileaflet aortic valve with normal function. * No aortic regurgitation. * No aortic stenosis. Mitral Valve * Normal mitral valve structure and function. * No mitral stenosis. * No mitral regurgitation. Tricuspid Valve * Normal tricuspid valve structure and function. * No tricuspid regurgitation. * Unable to estimate RVSP due to lack of TR jet. Pulmonic Valve * Normal pulmonic valve structure and function. * Trace pulmonic regurgitation. Aorta * Normally sized aortic root. Pericardium * The pericardium appears normal. IVC * Normal IVC dimensions and inspiratory collapse. Pulmonary Artery * Normal visualized portions of the main pulmonary artery. - Attending Attestation I saw evaluated and examined this patient and my medical decision-making was reviewed with the Resident Physician, Aleksandr Gonzalez. I agree with the documented findings, disposition and treatment plan as described except to any changes set forth below. We independently had [id number] contact with the patient. Patient no longer has been having any chest pain. Has been nothing by mouth overnight pending cardiac evaluation. On IV heparin. Denies any hematemesis, hematochezia or hematuria. No longer having any chest pain. No shortness of breath. On exam, patient is awake and alert. Cooperative. Breath sounds are normal. S1 and S2 normal. No murmur. Abdomen is soft, nontender. Normal strength in all extremities. No pedal edema. Acute chest pain: With concern for ACS. On IV heparin per cardiology recommend ations. Patient underwent 2-D echocardiogram today which showed normal ejection fraction of 60%. Left heart catheterization performed today. Severe 2 vessel coronary artery disease identified. Drug-eluting stent placed in mid RCA. Patient also has 70% stenosis in the first marginal branch of circumflex. Patient on aspirin, statin and Brilinta. Diabetes mellitus type 2: A1c 8.1%. Continue sliding scale insulin. Continue to monitor blood sugars. Essential hypertension: Blood pressure elevated earlier this morning but has since improved. Continue lisinopril and metoprolol. Hyperlipidemia: Continue statin. Moderate risk for complications. <Aleksandr Gonzalez - Last Filed: 10/06/18 13:47> (1) Chest pain Qualifiers: Chest pain type: unspecified Qualified Code(s): R07.9 - Chest pain, unspecified <Hellen Akhtar - Last Filed: 10/06/18 16:50> (1) HTN (hypertension) Qualifiers: (2) Chest pain Qualifiers: Chest pain type: unspecified Qualified Code(s): R07.9 - Chest pain, unspecified
--- NOTE | 2018-10-06 08:39 | Cardiology Consult Note ---
Addendum entered and electronically signed by Madan Peraza MD 10/06/18 14:31: I examined this patient and my medical decision-making was reviewed with the [employer]. I agree with the documented findings, disposition and treatment plan as described except to the extent set forth below. A/P: Probable NSTEMI DM Obesity A/R/B of [facility] vs. med tx dw with him, he is aware and agreeable with proceeding. Thank you for the consult, Madan Peraza MD [facility] Original Note: Date of Encounter: 10/06/18 Time of Encounter: 08:40 Assessment and Plan (1) Elevated troponin I measurement Current Visit: Yes Status: Acute Per Cardiology: Troponin initially negative and then 0.07, 0.09, and 0.07-- suspect non-STEMI. Patient denies any past history of CAD. Risk factors include male, obesity, DM 2, HTN, HLD. Will cancel stress test. Recommend left heart catheterization and echocardiogram. Will discuss with Dr. Peraza. On aspirin, statin, JENNIFER inhibitor, and heparin drip. Will add beta angy-- systolic blood pressure in the 150s. We will initiate cardiac rehabilitation consult. Patient verbalized understanding and agreed with plan. All questions answered. Discussion w patient/family: The assessment and plan as outlined above was discussed with the patient and/or family members who expressed understanding and agreement. All questions were answered. Thank you for involving us in the care of your patient. Please call with any questions. History of Present Illness Consult date: 10/06/18 Requesting physician: Aleksandr Gonzalez Consult reason: Elevated Troponin Chief complaint: CP History of present illness: Mr. Molina is a 68 year old male with a relevant past medical history of DM 2, HTN, HLD, obesity. Reports possible family history of CAD with father, however estranged. Denies any past history of NM or cardiac concerns. Cardiology consult for chest pain and elevated troponins. Patient reports fairly active at home with no difficulty. Denies any concerns or complaints prior to precipitating event. He reports he was doing some light housework and cleaning a room and developed midsternal left-sided chest pressure/heaviness with radiation down his left mid axillary region. He did report some mild shortness of breath. Reports symptoms improved with rest and lasted a total of about one hour. Denied any dizziness, syncope, falls. Denies any recent infectious process. Denies any active bleeding or blood loss. Denies any fatigue or dyspnea on exertion. Past Med Surg Social Fam HX - Past Medical History Attestation: Yes The following information was validated with the patient. Source: patient, old records reviewed Medical history: diabetes, hyperlipidemia, hypertension, other Additional medical history: ULCER Psychiatric history: anxiety, depression - Past Surgical History Surgical History: no surgical history Additional surgical history: Carpal tunnel. Achilles Tendon. APPY. - Social History Smoking Status: Former smoker Smokeless Tobacco Status: No Alcohol use: none Drug use: none - Family History Father Hx Family Cardiac Disorders: Yes Mother Hx Family Endocrine Disorder: Yes (DM) Medications and Allergies Citalopram [CeleXA] 20 mg PO DAILY 06/11/16 [History] Dapagliflozin Propanediol [Farxiga] 5 mg PO DAILY 06/11/16 [History] Lisinopril/Hydrochlorothiazide [Zestoretic 20-25 mg Tablet] 1 tab PO BID 06/11/16 [History] Multivits,Ca,Min/Iron/FA/Lycop [Centrum Men's Tablet] 1 tab PO DAILY 06/11/16 [ History] Insulin Regular U-500 [HumuLIN R U-500] 0 unit SQ AD 10/05/18 [History] Potassium Chloride [K-Tab ER] 20 meq PO DAILY 10/05/18 [History] Allergy/AdvReac Type Severity Reaction Status Date / Time No Known Allergies Allergy Verified 10/05/18 13:58 All Systems Review: The remainder of the systems were reviewed and are negative - Cardiovascular Cardiovascular: as per HPI, chest pain with exertion Physical Examination Vital Signs, Last 4 Hours Temp Pulse Resp BP Pulse Ox 10/06/18 08:11 97.6 F 72 18 150/89 97 General: Conversant, No Apparent Distress HEENT: Atraumatic, Normocephaly, Mucus Membranes Moist Neck: No JVD, Normal carotid pulses Cardiac: Reg Rate and Rhythm, Normal S1 and S2, No Murmur Lungs: Normal Breath Sounds, No Wheeze, Rales, Rhonchi Neuro: Alert and responsive, No focal deficits noted Abdomen: Soft, Non-Tender, Other (Obese) Skin: No rashes noted on visualized skin Musculoskeletal: No Chest Wall Tenderness Extremities: No Clubbing, No Cyanosis, No Edema, Normal Pulses Results 10/06/18 02:58 10/06/18 02:58 Lab Results Laboratory Tests 10/05/18 10/05/18 10/05/18 12:38 14:57 20:52 Hgb Hct INR Magnesium AST ALT Troponin I 0.03 0.07 H* 0.09 H* 10/06/18 10/06/18 10/06/18 00:13 02:58 02:58 Hgb 15.3 Hct 45.0 INR 1.1 Magnesium AST ALT Troponin I 0.07 H* 10/06/18 02:58 Hgb Hct INR Magnesium 2.1 AST 21 ALT 24 Troponin I ITS Impressions Chest X-Ray 10/05/18 12:00 IMPRESSION: No acute process. D/ / Osiel Cagle MD / Osiel Cagle MD Interpreting Provider: Osiel Cagle MD Active Medications Aspirin (Aspirin) 81 mg PO DAILY [facility] Stop: 04/07/19 09:01 Atorvastatin Calcium (Lipitor) 80 mg PO HS DB Stop: 04/06/19 21:01 Last Admin: 10/05/18 20:36 Dose: 80 mg Citalopram Hydrobromide (Celexa) 20 mg PO DAILY [facility] Stop: 04/07/19 09:01 Dextrose/Water (Dextrose 50% (Syg)) 25 ml IVP AD PRN PRN Reason: Hypoglycemia Stop: 04/06/19 16:37 Glucagon (Glucagen) 1 mg IM ONCE PRN PRN Reason: Hypoglycemia Stop: 04/06/19 16:37 Glucose (Gluctose) 15 gm PO ONCE PRN PRN Reason: Hypoglycemia Stop: 04/06/19 16:37 Glucose (Gluctose) 30 gm PO ONCE PRN PRN Reason: Hypoglycemia Stop: 04/06/19 16:37 Dextrose (Dextrose 5%) 1,000 mls @ 100 mls/hr IVC .Q10H PRN PRN Reason: HYPOGLYCEMIA Stop: 04/06/19 16:37 Lisinopril (Zestril) 20 mg PO DAILY [facility]; Protocol Stop: 04/07/19 09:01 Multivitamins/Calcium (Thera M Plus) 1 tab PO DAILY DB Stop: 04/07/19 09:01 Naloxone HCl (Narcan) 0.4 mg IVP Q2MIN PRN PRN Reason: SEE COMMENTS Stop: 04/06/19 14:42 Nitroglycerin (Nitroglycerin) 0.4 mg SL Q5MIN PRN PRN Reason: Chest Pain Stop: 04/06/19 12:19 Last Admin: 10/05/18 12:58 Dose: 0.4 mg Pharmacy Profile Note (Patient Taking Own Medication) 0 each PO DAILY [facility] Stop: 04/07/19 09:01 Pharmacy Profile Note (Patient Taking Own Medication) 0 each SQ AD DB Stop: 04/06/19 19:31 Last Admin: 10/05/18 19:37 Dose: Not Given - Imaging and Cardiology Stress Test: pending Echo: pending - EKG Interpretation EKG results cardiology: personally reviewed (Sinus rhythm the 80s with occasional PACs), normal ECG, sinus rhythm, no diagnostic ischemia Consult Discharge Plan - Plan Referrals: Chilo Sal MD [Primary Care Provider] - (Your appointment has been requested. Our offices will contact with an appointment time and date. )
[2018-10-06] MEDS: Aspirin 81 MG TAB.CHEW PO SCH (11:29)
[2018-10-06] MEDS: (Dapagliflozin Propanediol [Farxiga] 5 MG) PO SCH (11:29)
[2018-10-06] MEDS: Multivit/Ca/Min/Fe/FA 1 TAB TABLET PO SCH (11:29)
[2018-10-06] MEDS: Lisinopril 20 MG TABLET PO SCH (11:29)
[2018-10-06] MEDS ORDERED: *HR* Heparin 5,000 UNIT/ML VIAL IVP PRN ×2 (11:33)
[2018-10-06] MEDS ORDERED: Heparin 25,000 UNIT/500 ML D5W 25,000 UNIT/500 ML BAG IVC SCH (11:45)
[2018-10-06 12:10] LABS: Hematocrit 43.3 % (37.5-50.1); Hemoglobin 15.1 g/dL (12.9-16.9); Mean Corpuscular HGB Conc 34.9 g/dL (31.6-35.5); Mean Corpuscular Hemoglobin 29.7 pg (28.0-33.3); Mean Corpuscular Volume 85.2 fL (83.0-100.0); Mean Platelet Volume 9.4 fL (9.4-12.4); Platelet Count 175 K/mcL (140-400); Red Blood Count 5.08 M/mcL (4.19-5.50); Red Cell Distribution Width 12.9 % (11.5-14.5)
[2018-10-06 12:20] LABS: Heparin anti-factor XA UFH 0.36 IU/mL (0.30-0.70)
[2018-10-06 12:21] LABS: Prothrombin Time 11.4 Seconds (9.4-12.1)
[2018-10-06] MEDS ORDERED: ISOVUE-370 200 ML INFUS..BTL ONE (13:30)
[2018-10-06] MEDS ORDERED: 0.9 % Sodium Chloride 1,000 ML ONE ×2 (13:30→13:31)
[2018-10-06] MEDS ORDERED: *HR* Heparin 10,000 UNIT/10 ML VIAL ONE (13:30)
[2018-10-06] MEDS ORDERED: Heparin 1,000 UNITS/500 mL 500 ML ONE (13:30)
[2018-10-06] MEDS ORDERED: Nitroglycerin 1,000 MCG/10 ML VIAL IV ONE (13:31)
[2018-10-06] MEDS ORDERED: D5% in Water 1,000 ML IVC PRN (13:49)
[2018-10-06] MEDS ORDERED: *HR* Dextrose 50 % in Water (Syg) 50 ML SYRINGE IVP PRN (13:49)
[2018-10-06] MEDS ORDERED: Dextrose Gel 15 GM/37.5 ML TUBE PO PRN ×2 (13:49)
[2018-10-06] MEDS ORDERED: *HR* Midazolam HCl 2 MG/2 ML VIAL ONE ×2 (14:09→14:40)
[2018-10-06] MEDS ORDERED: *HR* Ticagrelor 90 MG TABLET ONE (15:04)
--- NOTE | 2018-10-06 15:11 | Pre-Sedation Evaluation ---
Pre-sedation evaluation - Pre-sedation checklist Date of procedure: 10/06/18 Procedure: left heart cath Recent Vitals: Last Vital Signs Temp 98.1 F 10/06/18 11:30 Pulse 75 10/06/18 11:30 Resp 16 10/06/18 11:30 BP 140/80 10/06/18 11:30 Pulse Ox 97 10/06/18 11:30 H&P (including ROS) documented in medical record: Yes Previous reaction to sedatives/anesthetics: No Dietary Status: NPO after Midnight Airway Assessment: Patient can open mouth completely, TMJ function normal Dentition: No loose teeth or bridges Possible difficult airway: No ASA Classification *see protocol: CLASS IV-Severe systemic disease/constant threat to pt's life Plan of Care: Pt appropriate candidate for procedure/moderate/conscious sedation, Risks/benefits of procedure/sedation discussed w/ patient/family, If not NPO; Risk of intake outweiged by necessity to perform procedure Cardiac Registry (Cardio Only) - Functional Capacity Functional Capacity: >=4 METS with symptoms - Clincal Frailty Scale Clinical Frailty Scale: Managing Well
[2018-10-06] MEDS ORDERED: 0.9 % Sodium Chloride 1,000 ML IVC SCH (15:15)
--- NOTE | 2018-10-06 15:29 | Invasive Diagnostic Lab Proc ---
Name: Abilio Molina Date of Study: 10/06/2018 Date: 1950 Ht: 72.0in Medical Record#: [id number] Age: 68 Wt: 242.51lb Gender: Male BSA: 2.31 Order #: [id number] BMI: 32.85 Physicians Procedure Physician: Jay Butler DO Referring MD: Referring MD: Staff Name Position Time In Malinda Casanova RT Scrub 01:58 PM Nazanin Hunter RN Fibrous Plasterer 01:58 PM Phyllis Stringer RN Monitor 01:58 PM Indications Indication Non-Stemi Procedures Performed Procedure L HRT ARTERY/VENTRICLE ANGIO PRQ CARD ABDULLAHI STENT W/ANGIO 1 VSL Pre-Procedure Checklist Informed consent is complete signed and on chart. H&P is on chart. ID band is on and ID verified with patient. Patient NPO for procedure The procedure was described for the patient and questions were answered. Blood Pressure: 140/80 ECG is on chart. Rhythm: NSR Plan of Care Patient will tolerate the procedure without complications. Adequate level of comfort will be maintained. Hemodynamics will remain stable Patient will recover from procedure without complications. Respiratory function will be maintained. Cardiac rhythm will remain stable. Patient temperature will be maintained. Patient and/or family have verbalized understanding of the procedure. Patient Education Chief Complaint/Reason for Test: Cardiac Cath Developmental Category: Geriatric (65+ years) Developmentally Appropriate for Age: Yes Learning Barriers: None Education Needs: Procedure Education Method: Verbal Information Taught: Cardiac Cath Educational Evaluation: Able to repeat information Intravenous Access Time IV Size Location DC'd Fluid/Drip Rate Units RN 01:37 PM 18g 1 11/10" Patent On Arrival Lt Antecubital Allergies No Known Allergies NONE KNOWN Vital Signs Time BP (mmHg) HR (bpm) O2 Sat. RR (bpm) LOC 01:37 PM 140 / 80 70 97 % 16 5 = Fully awake and oriented or at pre-proc level 02:06 PM / % 5 = Fully awake and oriented or at pre-proc level 02:06 PM / % 4 = Oriented but drowsy 02:21 PM / % 4 = Oriented but drowsy 02:36 PM / % 4 = Oriented but drowsy 02:09 PM 157 / 81 68 98 % 13 02:12 PM 142 / 80 75 94 % 21 02:17 PM 143 / 83 71 95 % 14 02:23 PM 137 / 74 68 97 % 13 02:27 PM 131 / 79 67 97 % 15 02:33 PM 131 / 69 56 95 % 14 02:38 PM 105 / 59 54 95 % 17 02:42 PM 112 / 55 62 96 % 19 02:47 PM 116 / 69 64 94 % 12 02:52 PM 106 / 70 65 93 % 13 02:58 PM 113 / 64 60 94 % 16 03:00 PM 124 / 69 59 93 % 17 03:03 PM 102 / 67 68 89 % 25 Procedural Medications Time Medication Dose Units Method Given By 02:05 PM Oxygen 2 L/min nasal cannula Nazanin Hunter RN 02:09 PM Versed 2 mg Intravenous Nazanin Hunter RN 02:19 PM Lidocaine 2% 10 ml Subcutaneous Jay Butler DO 02:28 PM Heparin 3000 units Intravenous Nazanin Hunter RN 02:40 PM Versed 1 mg Intravenous Nazanin Hunter RN 02:49 PM Nitroglycerin 100 mcg Intracoronary Jay Butler DO 02:49 PM 0.9NaCl 500 ml/hr Intravenous Nazanin Hunter RN 02:55 PM Dopamine 5 mcg Intravenous Nazanin Hunter RN 02:55 PM Oxygen 4 L/min nasal cannula Nazanin Hunter RN 03:00 PM Brilinta 180 mg Orally Nazanin Hunter RN Kareem Score Preprocedure Postprocedure Activity 2- Moves 4 extremities sustained head lift Activity 2- Moves 4 extremities sustained head lift Circulation 2- SBP +/= 20 points of pre-anesthetic level Circulation 2- SBP +/= 20 points of pre-anesthetic level Consciousness 2- Awake and alert oriented x 3 Consciousness 2- Awake and alert oriented x 3 O2 Saturation 2- Able to maintain O2 satruation of 92% on room air O2 Saturation 2- Able to maintain O2 satruation of 92% on room air Respiratory 2- Able to deep breathe and cough well Respiratory 2- Able to deep breathe and cough well Total Score 10 Total Score 10 Contrast Agent: Isovue Diagnostic Contrast: 100 ml Total Contrast: 100 ml Fluoro Dose: 36742 mGy Activated Clotting Time Time Seconds to Clot 02:27 PM 131 02:41 PM 165 02:47 PM 288 03:02 PM 165 Procedure Log Time Note Enter By 01:58 PM Pt arrived to clam bed laborer 2 at 13:58 roscoe 01:58 PM Malinda Casanova RT Position: Scrub Time in: 13:58 [facility] 01:58 PM Nazanin Hunter RN Position: Fibrous Plasterer Time in: 13:58 [facility] 01:58 PM Phyllis Stringer RN Position: Monitor Time in: 13:58 [facility] 01:58 PM Patient charges- Angio tray pack, Navilyst 3mm J, Pulse Oximetry and ACIST tubing and transducer avis 01:59 PM Case Start 01:59 PM CathStat 02:05 PM Hair removed from procedure site in procedure lab using clippers. Bilateral groin prepped with Chloraprep by Nzaanin Hunter RN, then patient was draped. Skin intact. avis 02:05 PM Physician arrived 14:05 [facility] 02:05 PM Meet and greet completed avis 02:05 PM Sign in performed according to hospital policy. Informed consent was obtained. avis 02:05 PM Procedure start 14:05 kmavis 02:05 PM Time: 14:05 Oxygen on at 2 L/min per nasal cannula by Nazanin Hunter RN [facility] 02:06 PM Time: 14:06 Patient comfortable and pain free: Yes kmavis 02:06 PM Time: 14:06LOC: 5 = Fully awake and oriented or at pre-proc level kmavis 02:07 PM Vitals capture started with the following parameters, Patient=Adult, Interval=5 min, Initial Amywytyv=820 mmHg, Deflation Rate=5 mmHg, Cuff placed on Right Arm 02:09 PM HR=68 bpm, DKVX=789/81 mmhg, SpO2=98.0 %, Resp=13 B/min, Comment=nsr 02:09 PM Time: 14:09 Versed 2 mg Intravenous Given by Nazanin Hunter RN [facility] 02:10 PM Recorded ECG: HR=67 Condition=Condition 1 02:12 PM Pressure channel 2 zeroed. 02:12 PM HR=75 bpm, ICVV=195/80 mmhg, SpO2=94.0 %, Resp=21 B/min, Comment=nsr 02:17 PM HR=71 bpm, XFYY=696/83 mmhg, SpO2=95.0 %, Resp=14 B/min, Comment=nsr 02:19 PM Time out was performed according to hospital policy. Conscious sedation and anesthesia was achieved (see medication log with in this report above) kmavis 02:20 PM Time: 14:19 10 ml Lidocaine 2% to right groin Subcutaneous Given by Jay Butler DO kmavis 02:21 PM Time: 14:06LOC: 4 = Oriented but drowsy kmavis 02:21 PM Time: 14:06 Patient comfortable and pain free: Yes kmavis 02:21 PM Micro-Introducer Kit utilized for sheath placement kmavis 02:22 PM Access obtained by percutaneous puncture. 6Fr 10cm Terumo [place] sheath placed in right Femoral artery. [id number] kmavis 02:22 PM 6Fr FR 4 catheter inserted over the wire DN kmavis 02:23 PM 0.035 145cm Navilyst 3mmJ wire [id number] kmavis 02:23 PM HR=68 bpm, UTUE=461/74 mmhg, SpO2=97.0 %, Resp=13 B/min, Comment=nsr 02:23 PM Catheter crossed the aortic valve and was selectively placed in the left ventricle. Pressures recorded on pullback for left heart catheterization. kmavis 02:23 PM Recorded Pressure: LV, HR=76, Condition=Condition 1 (Left Ventricle) LV 95/3/7 02:23 PM Recorded Pressure: LV, Ao, HR=68, Condition=Condition 1 (Left Ventricle) LV 66/-9/66, (Aorta) Ao 122/43/85 02:24 PM hand injected contrast to left ventricle kmavis 02:24 PM RCA angiography performed in multiple views. kmavis 02:24 PM Catheter removed kmavis 02:24 PM 6Fr FL 4 catheter inserted over the wire [facility] kmavis 02:24 PM LCA angiography performed in multiple views. kmavis 02:25 PM Recorded Pressure: Ao, HR=69, Condition=Condition 1 (Aorta) Ao 104/63/83 02:27 PM Catheter removed kmavis 02:27 PM 6Fr JR 4 Cordis guide catheter was used to cannulate the PCI vessel successfully. reused? No kmavis 02:27 PM .014 ChoICE PT Extra Support 300cm guide wire across target lesion- successful. reused? No kmavis 02:27 PM Inflation device was opened. kmavis 02:27 PM At 14:27 the ACT was 131 seconds. kmavis 02:27 PM HR=67 bpm, ONXQ=360/79 mmhg, SpO2=97.0 %, Resp=15 B/min, Comment=nsr 02:28 PM Time: 14:28 Heparin 3000 units Intravenous Given by Nazanin Hunter RN kmavis 02:29 PM Coronary Dominance: right kmavis 02:33 PM HR=56 bpm, NQXJ=527/69 mmhg, SpO2=95.0 %, Resp=14 B/min, Comment=nsr 02:34 PM 3.0mm x 17mm Cordis EluNIR drug-eluting stent unable to cross target lesion- unsuccessful Lot #[id number] kmavis 02:36 PM Time: 14:21 Patient comfortable and pain free: Yes kmavis 02:36 PM Time: 14:21LOC: 4 = Oriented but drowsy kmavis 02:37 PM Stent delivery system removed intact, stent not deployed. kmavis 02:38 PM HR=54 bpm, ICJJ=871/59 mmhg, SpO2=95.0 %, Resp=17 B/min, Comment=nsr 02:38 PM Guide catheter removed intact. kmavis 02:38 PM 6Fr MPA Cordis guide catheter was used to cannulate the PCI vessel successfully. reused? No kmavis 02:39 PM .014 ChoICE PT Extra Support 300cm guide wire across target lesion- successful. reused? No kmavis 02:40 PM Time: 14:40 Versed 1 mg Intravenous Given by Nazanin Hunter RN kmavis 02:41 PM At 14:41 the ACT was 165 seconds. kmavis 02:41 PM Lesion found in Mid RCA. Pre Stenosis: 85 Pre JOHN Flow: kmavis 02:41 PM Right Coronary, Right Posterior Descending Arteries with Right Posterolateral and Acute Marginal branches with 85 % stenosis. If graft is supplying this area, 0 % stenosis kmavis 02:42 PM stent delivery system re-inserted. kmavis 02:42 PM HR=62 bpm, LWCO=620/55 mmhg, SpO2=96.0 %, Resp=19 B/min, EtCO2=38 mmHg, Comment=nsr 02:43 PM stent and delivery system removed and not deployed. stent and delivery system intact. kmavis 02:44 PM 2.5 mm x 15 mm Emerge Monorail balloon across target lesion- successful. reused? No kmavis 02:45 PM Balloon inflated @ 14 jered for 16 seconds kmavis 02:46 PM Balloon catheter removed intact. kmavis 02:46 PM stent and stent delivery system re-inserted kmavis 02:47 PM At 14:47 the ACT was 288 seconds. kmavis 02:47 PM HR=64 bpm, VUQT=830/69 mmhg, SpO2=94.0 %, Resp=12 B/min, EtCO2=36 mmHg, Comment=nsr 02:48 PM Stent deployed @ 18 jered for 26 seconds kmavis 02:49 PM Stent delivery system removed intact. kmavis 02:49 PM Time: 14:49 Nitroglycerin 100 mcg Intracoronary Given by Jay Butler DO kmavis 02:50 PM Time: 14:49 0.9NaCl 500 ml/hr Intravenous Given by Nazanin Hunter RN Ortiz pump kmavis 02:51 PM Time: 14:36 Patient comfortable and pain free: Yes kmavis 02:51 PM Time: 14:36LOC: 4 = Oriented but drowsy kmavis 02:52 PM 3.0mm x 17mm Cordis EluNIR drug-eluting stent across target lesion- successful Lot #[id number] kmavis 02:52 PM HR=65 bpm, AELZ=975/70 mmhg, SpO2=93.0 %, Resp=13 B/min, EtCO2=35 mmHg, Comment=nsr 02:53 PM Stent deployed @ 16 jered for 17 seconds kmavis 02:54 PM Stent balloon reinflated @ 18 jered for 12 seconds kmavis 02:55 PM Time: 14:55 Dopamine 5 mcg Intravenous Given by Nazanin Hunter RN Ortiz pump kmavis 02:55 PM Time: 14:55 Oxygen on at 4 L/min per nasal cannula by Nazanin Hunter RN kmavis 02:56 PM Stent delivery system removed intact. kmavis 02:56 PM Guide catheter removed intact. kmavis 02:56 PM Guide wire removed intact. kmavis 02:56 PM hand injected to right groin kmavis 02:58 PM HR=60 bpm, JTFJ=985/64 mmhg, SpO2=94.0 %, Resp=16 B/min, EtCO2=35 mmHg, Comment=nsr 02:59 PM NIBP STAT measurement started. 03:00 PM HR=59 bpm, RTMT=084/69 mmhg, SpO2=93 %, Resp=17 B/min 03:00 PM dopamine turned off at this time per dr. butler by magdy awan kmavis 03:01 PM Time: 15:00 Brilinta 180 mg Orally Given by Nazanin Hunter RN kmavis 03:02 PM At 15:02 the ACT was 165 seconds. kmavis 03:02 PM Procedure completed at 15:02 10/06/2018 kmavis 03:02 PM Did you address JOHN flow and Dominance? Yes kmavis 03:03 PM HR=68 bpm, SZWV=294/67 mmhg, SpO2=89 %, Resp=25 B/min 03:03 PM Sign out completed: Radiation Dose 1665.94 mGy, 87124 cGy/cm2 Fluoro Time: 12.1 Isovue 370 - 200ml contrast 100 ml given by Jay Butler DO. Complications: None. The patient was discharged out of the clinical laboratory technician in stable condition. Cardiac Rehab Consult needed: NoConfirmed administered medications: Yes kmavis 03:03 PM Isovue 370 - 200ml,1 Bottle(s) used. kmavis 03:03 PM Sheath left in place to be pulled on floor/holding areaV+Pad kmavis 03:03 PM Estimated Blood Loss: minimal kmavis 03:03 PM Post ECG NSR kmavis 03:03 PM Post Blood Pressure 102/67 kmavis 03:03 PM Information taught Cardiac Cath and PCI kmavis 03:03 PM Education needs Procedure, Plan of Care, and Disease Process kmavis 03:03 PM Learning barriers :None kmavis 03:03 PM Education Methods Verbal kmavis 03:03 PM Education evaluation Able to repeat information kmavis 03:03 PM Site status No bleeding/hematoma - Rt Groin as reported by Malinda Casanova RT at 15:03 kmavis 03:04 PM Opsite applied kmavis 03:04 PM Report given to Denise AWAN Pt taken to 2N Room #15. 15:04 kmavis 03:04 PM Plavix, Effient or Brilinta given Yes kmavis 03:04 PM Delay to floor No kmavis 03:04 PM Patient out of room: 15:04 kmavis 03:04 PM Family placed in consult room. kmavis 03:04 PM Complications: None kmavis 03:15 PM Lesion found in 1st Marginal. Pre Stenosis: 70 Pre JOHN Flow: kmavis 03:16 PM Circumflex, Obtuse Marginal, Left Posterior Descending, and Left Posterolateral Coronary Arteries with 70 % stenosis. If graft is supplying this area, 0 % stenosis kmavis Complications Complication None None Hemodynamics Pressures Site Systolic/A Wave Diastolic/V Wave Mean LV 95 3 7 LV 66 -9 66 AO 122 43 85 AO 104 63 83 Post Procedure Information Blood Pressure: 102/67 mmHg Rhythm: NSR Post procedural instructions were given Site Checks Time Location Status Staff Sheath In? Note 03:03 PM Rt Groin No bleeding/hematoma Malinda Casanova RT Pulses Updated by Nazanin Hunter RN on 10/06/2018 3:22:47 PM electronically signed on 10/06/2018 3:23:32 PM with status of Final
--- NOTE | 2018-10-06 16:07 | Electrocardiograph Report ---
[address] [address] Test Date: 2018-10-05 Pat Name: Abilio Molina Department: 113 Room: 2N15 Gender: M Event Services Manager: : 1950 Requested By: Osiel Loza Order Number: [id number] Reading MD: Mamta Galindo Measurements Intervals [place] Rate: 84 P: 28 [place]: 188 QRS: -25 QRSD: 93 T: 56 QT: 374 QTc: 415 Interpretive Statements SINUS RHYTHM WITH OCCASIONAL SUPRAVENTRICULAR PREMATURE COMPLEXES BORDERLINE LEFT AXIS DEVIATION NONSPECIFIC T-WAVE ABNORMALITY Electronically Signed On 10-06-2018 16:06:10 EST by Mamta Galindo
[2018-10-06] MEDS: Insulin LISPRO 300 UNITS/3 ML VIAL SQ SCH (17:16)
[2018-10-06] MEDS ORDERED: *HR* Atropine Sulfate 1 MG/10 ML SYRINGE ONE (17:41)
[2018-10-06] MEDS ORDERED: Insulin LISPRO 300 UNITS/3 ML VIAL SQ SCH (21:00)
[2018-10-06] MEDS: Patient Taking Own Medication 1 EACH SQ SCH (21:02)
[2018-10-06] MEDS: *HR* Ticagrelor 90 MG TABLET PO SCH (21:04)
--- NOTE | 2018-10-07 07:00 | Cardiology Progress Note ---
Date of Encounter: 10/07/18 Time of Encounter: 07:00 Assessment and Plan (1) NSTEMI (non-ST elevated myocardial infarction) Current Visit: Yes Status: Acute Per Cardiology: Peak troponin 0.09. Echo showed EF preserved 60%, no significant valvular dysfunction. Underwent left heart catheterization: Lesion Findings/Interventions * Left Main Coronary Artery The LMCA is angiographically free of disease. * Left Anterior Descending The LAD is angiographically free of disease. The 1st Diagonal is angiographically free of disease. * Circumflex There is a 70% stenosis in the 1st Marginal. * Right Coronary Artery There is a 34 mm long, 85% stenosis in the Mid RCA. An intervention was performed on the Mid RCA with a final stenosis of 0%. There were no lesion complications. The final JOHN flow was 3. On aspirin, Brilinta-- assistance card provided, statin, beta angy, JENNIFER inhibitor. Cardiology will sign off, follow-up arranged, all questions answered. Patient reports told by Dr. Butler potential staged PCI of remaining OM1 70% lesion in outpatient setting. Discussion w patient/family: The assessment and plan as outlined above was discussed with the patient who expressed understanding and agreement. All questions were answered. Thank you for involving us in the care of your patient. Please call with any questions. Subjective Principal diagnosis: NSTEMI Interval history: Patient denies any chest pain. Denies any concerns or complaints. Objective Vital Signs, Last 4 Hours Temp Pulse Resp BP Pulse Ox 10/07/18 03:54 98 F 72 15 144/74 96 General: Conversant, No Apparent Distress HEENT: Atraumatic, Normocephaly, Mucus Membranes Moist Neck: No JVD, Normal carotid pulses Cardiac: Reg Rate and Rhythm, Normal S1 and S2, No Murmur Lungs: Normal Breath Sounds, No Wheeze, Rales, Rhonchi Neuro: Alert and responsive, No focal deficits noted Abdomen: Soft, Non-Tender Skin: No rashes noted on visualized skin, Other (Right groin site dry and intact, no hematoma, no ecchymosis, no bleeding, right PT and DP pulses 2+ palpable) Musculoskeletal: No Chest Wall Tenderness Extremities: No Clubbing, No Cyanosis, No Edema, Normal Pulses Results 10/06/18 11:49 10/06/18 02:58 Lab Results Laboratory Tests 10/05/18 10/06/18 10/06/18 20:52 00:13 02:58 Hgb 15.3 Hct 45.0 Creatinine 0.85 Est GFR (Non-Af Amer) > 60 Troponin I 0.09 H* ITS Impressions Chest X-Ray 10/05/18 12:00 IMPRESSION: No acute process. D/ / Osiel Cagle MD / Osiel Cagle MD Interpreting Provider: Osiel Cagle MD Echocardiogram 10/06/18 08:42 Impressions: LVEF 60%. Normal LV chamber size and function. Mild concentric left ventricular hypertrophy. Mild left ventricular diastolic dysfunction. Normal right ventricular structure and function. Unable to estimate RVSP due to lack of TR jet. No significant valvular dysfunction. Left Ventricular Wall Motion: Rest Echo Findings All wall segments showed normal motion. Findings: Study Quality * Technically adequate exam. ECG Findings * Normal sinus rhythm. Left Ventricle * LVEF 60%. * Normal LV chamber size and function. * Mild concentric left ventricular hypertrophy. * Mild left ventricular diastolic dysfunction. Right Ventricle * Normal right ventricular structure and function. Left Atrium * Normal left atrial size. Right Atrium * Normal right atrial size. Aortic Valve * Trileaflet aortic valve with normal function. * No aortic regurgitation. * No aortic stenosis. Mitral Valve * Normal mitral valve structure and function. * No mitral stenosis. * No mitral regurgitation. Tricuspid Valve * Normal tricuspid valve structure and function. * No tricuspid regurgitation. * Unable to estimate RVSP due to lack of TR jet. Pulmonic Valve * Normal pulmonic valve structure and function. * Trace pulmonic regurgitation. Aorta * Normally sized aortic root. Pericardium * The pericardium appears normal. IVC * Normal IVC dimensions and inspiratory collapse. Pulmonary Artery * Normal visualized portions of the main pulmonary artery. Active Medications Aspirin (Aspirin) 81 mg PO DAILY [facility] Stop: 04/07/19 09:01 Last Admin: 10/06/18 11:29 Dose: 81 mg Atorvastatin Calcium (Lipitor) 80 mg PO HS DB Stop: 04/06/19 21:01 Last Admin: 10/06/18 21:04 Dose: 80 mg Citalopram Hydrobromide (Celexa) 20 mg PO DAILY DB Stop: 04/07/19 09:01 Last Admin: 10/06/18 11:29 Dose: 20 mg Dextrose/Water (Dextrose 50% (Syg)) 25 ml IVP AD PRN PRN Reason: Hypoglycemia Stop: 04/06/19 16:37 Dextrose/Water (Dextrose 50% (Syg)) 25 ml IVP AD PRN PRN Reason: Hypoglycemia Stop: 04/07/19 13:50 Glucagon (Glucagen) 1 mg IM ONCE PRN PRN Reason: Hypoglycemia Stop: 04/06/19 16:37 Glucagon (Glucagen) 1 mg IM ONCE PRN PRN Reason: Hypoglycemia Stop: 04/07/19 13:50 Glucose (Gluctose) 15 gm PO ONCE PRN PRN Reason: Hypoglycemia Stop: 04/06/19 16:37 Glucose (Gluctose) 30 gm PO ONCE PRN PRN Reason: Hypoglycemia Stop: 04/06/19 16:37 Glucose (Gluctose) 15 gm PO ONCE PRN PRN Reason: Hypoglycemia Stop: 04/07/19 13:50 Glucose (Gluctose) 30 gm PO ONCE PRN PRN Reason: Hypoglycemia Stop: 04/07/19 13:50 Dextrose (Dextrose 5%) 1,000 mls @ 100 mls/hr IVC .Q10H PRN PRN Reason: HYPOGLYCEMIA Stop: 04/06/19 16:37 Dextrose (Dextrose 5%) 1,000 mls @ 100 mls/hr IVC .Q10H PRN PRN Reason: HYPOGLYCEMIA Stop: 04/07/19 13:50 Sodium Chloride (0.9 % Sodium Chloride) 1,000 mls @ 100 mls/hr IVC .Q10H DB Stop: 04/07/19 15:16 Insulin Human Lispro (Humalog) 0 units SQ TIDAC [facility]; Protocol Stop: 04/07/19 16:31 Last Admin: 10/06/18 17:16 Dose: 6 units Insulin Human Lispro (Humalog) 0 units SQ HS [facility]; Protocol Stop: 04/07/19 21:01 Last Admin: 10/06/18 21:02 Dose: Not Given Lisinopril (Zestril) 20 mg PO DAILY [facility]; Protocol Stop: 04/07/19 09:01 Last Admin: 10/06/18 11:29 Dose: 20 mg Metoprolol Tartrate (Lopressor) 12.5 mg PO BID [facility] Stop: 04/07/19 09:31 Last Admin: 10/06/18 21:04 Dose: 12.5 mg Multivitamins/Calcium (Thera M Plus) 1 tab PO DAILY DB Stop: 04/07/19 09:01 Last Admin: 10/06/18 11:29 Dose: 1 tab Naloxone HCl (Narcan) 0.4 mg IVP Q2MIN PRN PRN Reason: SEE COMMENTS Stop: 04/06/19 14:42 Nitroglycerin (Nitroglycerin) 0.4 mg SL Q5MIN PRN PRN Reason: Chest Pain Stop: 04/06/19 12:19 Last Admin: 10/05/18 12:58 Dose: 0.4 mg Pharmacy Profile Note (Patient Taking Own Medication) 0 each PO DAILY DB Stop: 04/07/19 09:01 Last Admin: 10/06/18 11:29 Dose: Not Given Pharmacy Profile Note (Patient Taking Own Medication) 0 each SQ AD DB Stop: 04/06/19 19:31 Last Admin: 10/06/18 21:02 Dose: Not Given Ticagrelor (Brilinta) 90 mg PO BID DB Stop: 04/07/19 21:01 Last Admin: 10/06/18 21:04 Dose: 90 mg - Imaging and Cardiology Echo: report reviewed Cardiac cath: report reviewed Consult Discharge Plan - Plan Referrals: Omar Landis MD [Partnered Physician] - 10/14/18 9:30 am Chilo Sal MD [Primary Care Provider] - 03/29/19 2:00 pm () Osiel Melissa CNP [Advanced Practice Nurse] - 10/11/18 3:00 pm Sandra Mallory CNP [Advanced Practice Nurse] - 10/12/18 10:35 am
[2018-10-07 07:23] VITALS: BP 151/75
[2018-10-07] MEDS: Insulin LISPRO 300 UNITS/3 ML VIAL SQ SCH (08:33)
[2018-10-07] MEDS: *HR* Ticagrelor 90 MG TABLET PO SCH (08:33)
[2018-10-07] MEDS: Multivit/Ca/Min/Fe/FA 1 TAB TABLET PO SCH (08:33)
[2018-10-07] MEDS: Lisinopril 20 MG TABLET PO SCH (08:33)
[2018-10-07] MEDS: Aspirin 81 MG TAB.CHEW PO SCH (08:34)
[2018-10-07] MEDS: (Dapagliflozin Propanediol [Farxiga] 5 MG) PO SCH (08:34)
--- NOTE | 2018-10-07 10:20 | Discharge Summary ---
- NOTES TO OUTPATIENT PROVIDER Notes to Outpatient Provider: Patient with a history of diabetes, hypertension, hyperlipidemia was hospitalized here with atypical chest pain and mild elevation in troponin. He was started on heparin drip per cardiology recommendations and then underwent left heart catheterization yesterday which showed two-vessel disease. Patient underwent stenting of right mid RCA. He does have a 70% stenosis of the marginal branch of left circumflex for which she will undergo staged PCI as outpatient. In the meantime patient will continue to take aspirin and brilinta along with beta angy, statin and lisinopril. Patient will follow-up with cardiology and undergo cardiac rehabilitation. Date of Encounter: 10/07/18 Time of Encounter: 09:25 - Discharge Diagnosis (1) NSTEMI (non-ST elevated myocardial infarction) Priority: Primary Status: Acute (2) HTN (hypertension) Priority: Secondary Status: Acute Qualifiers: Hypertension type: essential hypertension Qualified Code(s): I10 - Essential (primary) hypertension (3) Chest pain Priority: Secondary Status: Acute Qualifiers: Chest pain type: chest pain due to myocardial ischemia Ischemic chest pain type: unstable angina pectoris Qualified Code(s): I20.0 - Unstable angina (4) Insulin dependent diabetes mellitus Priority: Secondary Status: Acute (5) DVT prophylaxis Priority: Secondary Status: Acute Hospital course: Mr. Molina is a 68 year old male Patient with a history of diabetes, hypertension, hyperlipidemia was hospitalized here with atypical chest pain and mild elevation in troponin. He was started on heparin drip per cardiology recommendations and then underwent left heart catheterization yesterday which showed two-vessel disease. Patient underwent stenting of right mid RCA. He does have a 70% stenosis of the marginal branch of left circumflex for which she will undergo staged PCI as outpatient. In the meantime patient will continue to take aspirin and brilinta along with beta angy, statin and lisinopril. Patient will follow-up with cardiology and undergo cardiac rehabilitation. Patient had a normal ejection fraction of 60%. He did have mild left ventricle diastolic dysfunction. Also patient has a history of peptic ulcer disease previously when he was taking aspirin and ibuprofen. He has not had any issues with it for at least a year. He is advised to return to the ER if he notices any blood in his stools or dark colored stools. Discharge discussed with: patient, family - Time Spent with Patient Total time spent providing and/or coordinating discharge services: Greater than 30 minutes (32 min) - Discharge Medications Prescriptions: Aspirin Enteric Coated [Aspirin EC] 81 mg PO DAILY #30 tablet. Atorvastatin [Lipitor] 80 mg PO HS #30 tablet Metoprolol [Lopressor] 12.5 mg PO BID #30 tablet Ticagrelor [Brilinta] 90 mg PO BID #60 tablet Home Medications: Citalopram [CeleXA] 20 mg PO DAILY 06/11/16 [History] Dapagliflozin Propanediol [Farxiga] 5 mg PO DAILY 06/11/16 [History] Lisinopril/Hydrochlorothiazide [Zestoretic 20-25 mg Tablet] 1 tab PO BID 06/11/16 [History] Multivits,Ca,Min/Iron/FA/Lycop [Centrum Men's Tablet] 1 tab PO DAILY 06/11/16 [History] Insulin Regular U-500 [HumuLIN R U-500] 0 unit SQ AD 10/05/18 [History] Potassium Chloride [K-Tab ER] 20 meq PO DAILY 10/05/18 [History] Aspirin Enteric Coated [Aspirin EC] 81 mg PO DAILY #30 tablet. 10/07/18 [Rx] Atorvastatin [Lipitor] 80 mg PO HS #30 tablet 10/07/18 [Rx] Metoprolol [Lopressor] 12.5 mg PO BID #30 tablet 10/07/18 [Rx] Patient Taking Own Medication 0 each SQ AD each 10/07/18 [Rx] Ticagrelor [Brilinta] 90 mg PO BID #60 tablet 10/07/18 [Rx] Allergies/Adverse Reactions: Allergy/AdvReac Type Severity Reaction Status Date / Time No Known Allergies Allergy Verified 10/05/18 13:58 Date of admission: 10/05/18 13:42 Primary care physician: Chilo Sal MD Consults: 10/05/18 16:37 Consult to Cardiology [CONS] Routine Comment: Consulting Provider: Card[facility] [place] Reason for Consult: elevated trops, chest pain, GLASER score of 5. Call Completed: Yes 10/06/18 09:27 Consult to Cardiac Rehabilitation-Phase1 [CONS] Routine Comment: Reason for Consult: NSTEMI Call Completed: No 10/06/18 15:06 Consult to Cardiac Rehabilitation-Phase1 [CONS] Routine Comment: Reason for Consult: AMI Call Completed: Yes Consult to Nurse Navigator [CONS] Routine Comment: Discharging clinician: Hellen Akhtar Anticipated date of discharge: 10/07/18 - Constitutional Vitals: Temp Pulse Resp BP Pulse Ox 98.2 F 78 16 151/75 95 10/07/18 07:21 10/07/18 07:21 10/07/18 07:21 10/07/18 07:21 10/07/18 07:21 General appearance: Present: A&O X 3, pleasant, no acute distress, obese, answers questions appropriately Exam: . - Respiratory Respiratory exam: Present: CTAB. Absent: accessory muscle use, rales, rhonchi, wheezes - Cardiovascular Cardiovascular exam: Present: RRR, +S1, +S2. Absent: diastolic murmur, gallop, rubs, systolic murmur - Extremities Exam Extremities exam: Present: warm, radial pulses palpable and symmetrical. Absent: calf tenderness, cyanotic, pedal edema - Patient Status Disposition: Home, Self-Care Condition: Good Overall status at discharge: patient is progressing back to baseline - Discharge Instructions Instructions: Myocardial Infarction (DC), Left Heart Catheterization (DC), Diabetes Mellitus Type 2 in Adults (DC) Follow Up With: Omar Landis MD [Partnered Physician] - 10/14/18 9:30 am Chilo Sal MD [Primary Care Provider] - 03/29/19 2:00 pm () Osiel Melissa CNP [Advanced Practice Nurse] - 10/11/18 3:00 pm Sandra Mallory CNP [Advanced Practice Nurse] - 10/12/18 10:35 am Jay Butler DO [Partnered Physician] - (in 1-2 weeks) - Diet and Activity Activity: as per the cardiac rehab Diet: diabetic diet, low fat, low cholesterol, low salt diet
== END 2018-10-07 10:55 | disposition home or self-care (01) ==
LOC: 3BNU 11:56 → EMEROOARM 11:56 → SUATTDRO 13:42 → 3BNU 14:08 → 2NNU 10-06 15:33
PROVIDERS: ADMIT Internal Medicine Cardiovascular Disease; ATTEND Internal Medicine

== ENCOUNTER 2021-01-10 16:13 | Observation (INO) ==
[2021-01-10 16:47] LABS: Basophils % 0.4 %; Eosinophils # 0.2 K/mcL (0.0-0.6); Eosinophils % 1.8 %; Hematocrit 38.6 % (37.5-50.1); Immature Granulocytes % 0.6 % (0-4); Lymphocytes # 1.5 K/mcL (0.6-4.6); Mean Corpuscular HGB Conc 33.7 g/dL (31.6-35.5); Mean Corpuscular Hemoglobin 29.2 pg (28.0-33.3); Mean Corpuscular Volume 86.7 fL (83.0-100.0); Mean Platelet Volume 9.5 fL (9.4-12.4); Monocytes # 1.2 K/mcL (0.0-1.3); Monocytes % 12.1 %; Neutrophils # 6.6 K/mcL (1.6-8.9); Platelet Count 147 K/mcL (140-400); Red Blood Count 4.45 M/mcL (4.19-5.50); Red Cell Distribution Width 13.2 % (11.5-14.5); Segmented Neutrophils % 69.1 %; White Blood Count 9.5 K/mcL (4.3-11.1)
[2021-01-10 17:05] LABS: BUN/Creatinine Ratio 17 (6-26); Blood Urea Nitrogen 15 mg/dL (8-23); Calcium 9.4 mg/dL (8.6-10.3); Carbon Dioxide 25 mEq/L (23-29); Chloride 100 mEq/L (98-107); Glucose 211 mg/dL (70-105); Osmolality,Calculated 283 (280-300); Potassium 3.8 mEq/L (3.5-5.1); Sodium 133 mEq/L (136-145); eGFR For African Americans > 60 (> 60); eGFR For Non-African Americans > 60 (> 60)
[2021-01-10] MEDS ORDERED: cefTRIAXone 1,000 MG in 0.9 % Sodium Chloride Mini Bag 100 ML IVPB ONE (17:48)
[2021-01-10] MEDS ORDERED: MetroNIDAZOLE 500 MG/100 ML 500 MG/100 ML BAG IVPB ONE (17:48)
[2021-01-10] MEDS ORDERED: cefTRIAXone 1,000 MG in Water for inj. (sterile) 10 ML IVP ONE (18:00)
[2021-01-10] MEDS ORDERED: Acetaminophen 325 MG TABLET PO PRN (18:21)
[2021-01-10] MEDS ORDERED: Melatonin 3 MG TABLET PO PRN (18:21)
[2021-01-10] MEDS ORDERED: Naloxone 0.4 MG/ML INJ IVP PRN (18:21)
[2021-01-10] MEDS ORDERED: Ondansetron 4 MG/2 ML VIAL IVP PRN (18:21)
[2021-01-10] MEDS: *HR* Ticagrelor 90 MG TABLET PO SCH (19:38)
[2021-01-10] MEDS: *HR* Heparin 5,000 UNIT/ML VIAL SQ SCH (21:46)
[2021-01-11 02:20] LABS: Basophils # 0.1 K/mcL (0.0-0.2); Basophils % 0.6 %; Eosinophils # 0.2 K/mcL (0.0-0.6); Eosinophils % 2.5 %; Hematocrit 37.3 % (37.5-50.1); Hemoglobin 12.8 g/dL (12.9-16.9); Immature Granulocytes % 0.8 % (0-4); Lymphocytes # 1.5 K/mcL (0.6-4.6); Lymphocytes % 16.9 %; Mean Corpuscular HGB Conc 34.3 g/dL (31.6-35.5); Mean Corpuscular Volume 87.4 fL (83.0-100.0); Mean Platelet Volume 9.8 fL (9.4-12.4); Monocytes # 1.2 K/mcL (0.0-1.3); Neutrophils # 5.9 K/mcL (1.6-8.9); Platelet Count 140 K/mcL (140-400); Red Blood Count 4.27 M/mcL (4.19-5.50); Red Cell Distribution Width 13.4 % (11.5-14.5); Segmented Neutrophils % 66.2 %; White Blood Count 8.9 K/mcL (4.3-11.1)
[2021-01-11 02:42] LABS: BUN/Creatinine Ratio 20 (6-26); Blood Urea Nitrogen 17 mg/dL (8-23); Calcium 9.2 mg/dL (8.6-10.3); Carbon Dioxide 25 mEq/L (23-29); Chloride 102 mEq/L (98-107); Glucose 113 mg/dL (70-105); Osmolality,Calculated 286 (280-300); Potassium 3.7 mEq/L (3.5-5.1); Sodium 137 mEq/L (136-145); eGFR For African Americans > 60 (> 60); eGFR For Non-African Americans > 60 (> 60)
[2021-01-11] MEDS: MetroNIDAZOLE 500 MG/100 ML 500 MG/100 ML BAG IVPB SCH ×2 (03:46→09:44)
[2021-01-11] MEDS: *HR* Heparin 5,000 UNIT/ML VIAL SQ SCH (05:49)
[2021-01-11 08:03] VITALS: BP 136/77
[2021-01-11] MEDS ORDERED: cefTRIAXone 1,000 MG in Water for inj. (sterile) 10 ML IVP SCH (09:00)
[2021-01-11] MEDS ORDERED: (Dapagliflozin Propanediol [Farxiga] 5 MG Tablet) PO SCH (09:00)
[2021-01-11] MEDS: *HR* Ticagrelor 90 MG TABLET PO SCH (09:43)
== END 2021-01-11 11:30 | disposition home or self-care (01) ==
LOC: 3ANU 16:13 → EMEROOARM 16:13 → 3ANU 18:44
PROVIDERS: ADMIT Internal Medicine; ATTEND Internal Medicine